=== PATIENT | male | born 1960 | race Caucasian/White ===

== ENCOUNTER → 2019-02-04 09:45 | Outpatient (POV) | payer OTHER, BC, SELFPAY | PROVIDERS: Visit Provider Dermatology | DX: Z00.00 Encounter for general adult medical examination without abnormal findings (principal) ==

== ENCOUNTER → 2019-02-14 10:17 | Outpatient (CLI) | payer BC, SELFPAY ==
--- NOTE | 2019-02-14 10:28 | XR_ITS ---
PROCEDURE: XR CHEST 2V CLINICAL HISTORY: COUGH,TOBACCO ABUSE COMPARISON: No exams were available for comparison FINDINGS: The cardiomediastinal silhouette and pulmonary vascularity are within normal limits. Borderline emphysematous changes noted with mild hyperinflation of the lungs and flattening of the hemidiaphragms. There is no infiltrate and no pleural fluid. There are minor degenerative changes lower thoracic spine. IMPRESSION: Borderline COPD otherwise negative chest Dictated by: Dr. Sudeep Brown MD 02/14/2019 10:[address] Sudeep Brown MD in [place] 02/14/2019 10:54
== END ==
PROVIDERS: PCP Family Medicine; Visit Provider Nurse Practitioner Family
DX: R05 Cough (principal); Z72.0 Tobacco use
CPT/HCPCS: 71046

== ENCOUNTER → 2019-07-29 09:53 | Outpatient (POV) | payer BC, SELFPAY | PROVIDERS: PCP Family Medicine; Visit Provider Dermatology | DX: Z00.00 Encounter for general adult medical examination without abnormal findings (principal) ==

== ENCOUNTER → 2019-10-14 07:46 | Outpatient (CLI) | payer BC, SELFPAY ==
[2019-10-14 07:51] LABS: Adenovirus,PCR Not Detected (NotDetected); Bordetella Pertussis Not Detected (NotDetected); Chlamydophila Pneumoniae, PCR Not Detected (NotDetected); Coronavirus 19, PCR Not Detected (NotDetected); Coronavirus 229E Not Detected (NotDetected); Coronavirus NL63 Not Detected (NotDetected); Coronavirus OC43 Not Detected (NotDetected); Coronovirus HKU1,PCR Not Detected (NotDetected); Human Metapneumovirus Not Detected (NotDetected); Influenza A, PCR Not Detected (NotDetected); Influenza AH1, 2009 Not Detected (NotDetected); Influenza AH1, PCR Not Detected (NotDetected); Influenza AH3,PCR Not Detected (NotDetected); Influenza B, PCR Not Detected (NotDetected); Mycoplasma Pneumoniae, PCR Not Detected (NotDected); Parainfluenza 1, PCR Not Detected (NotDetected); Parainfluenza 2, PCR Not Detected (NotDetected); Parainfluenza 3, PCR Not Detected (NotDetected); Parainfluenza 4, PCR Not Detected (NotDetected); Respiratory Syncytial Virus Not Detected (NotDetected); Rhinovirus/Enterovirus Not Detected (NotDetected)
--- NOTE | 2019-10-15 15:35 | PC.NURSE ---
notified pt and Kari RN of negative COVID 19 results.
== END ==
PROVIDERS: Visit Provider Surgery
DX: Z01.818 Encounter for other preprocedural examination (principal)
CPT/HCPCS: 87581; 87633; 87798

== ENCOUNTER 2019-10-16 07:19 | Day surgery (SDC) | payer BC, SELFPAY ==
--- NOTE | 2019-10-13 12:35 | SUR.PREOP ---
10/13/19 @ 0482--PHONE CALL MADE TO PATIENT. PATIENT UNDERSTANDS THAT LAB WORK AND COVID TESTING NEEDS TO BE COMPLETED @ 0800 ON 10/14/19. PATIENT UNDERSTANDS IF LAB WORK AND COVID-19 TESTS ARE NOT COMPLETED BY 12PM ON THAT DATE, THE SURGERY SCHEDULED WILL BE CANCELLED AND RESCHEDULED FOR ANOTHER TIME.
[2019-10-14 13:09] VITALS: BMI 36.3
[2019-10-16] VITALS (7 sets, daily range): BP systolic 85–172; BP diastolic 51–81; PULSE 60–85; RESP 18–20; TEMP 36.7–36.9; O2SAT 89–98
--- NOTE | 2019-10-16 08:40 | HMH.ANESCL ---
[facility] Anesthesia Checklist - Structural Data Admitted From: Home Planned Operative Procedure/s: egd/colonoscopy Consent for Planned Operative Procedure(s) Verified: Yes - Airway Assessment C-Spine Mobility Assessed: Yes TMJ Mobility Assessed: Yes Dentition: Good Dentition - Neurological Assessment Level of Consciousness: Awake, Alert, Appropriate - Anesthesia Plan Anesthesia Risk discussed: Yes Anesthesia Plan: Verified ASA Class: III Anesthesia Type: MAC [facility] History I have reviewed the patient's past medical history: Yes Medical History: Reports:: Hypertension Denies:: Cancer, Diabetes Mellitus Type 1, Diabetes Mellitus Type 2, Internal Pacemaker, MRSA, Seizures *Have you ever received a pneumonia vaccine?: No *Have you received a flu vaccine this season?: Yes Anesthesia experience/problems:: none Other Surgeries: Yes: Colonoscopy. No: Pacemaker Amputation: No Fractures: No - *Social History Educational Level: Completed High School Smoking Status: Former smoker Alcohol Intake: never Substance Use Type: denies use *Occupational Status:: employed Housing: house Household Members: spouse *Travel in the last 8 weeks: None Family Hx:: No significant family history
--- NOTE | 2019-10-16 09:27 | HMH.SCOPE ---
- Procedure: Date: 10/16/19 Procedure Performed:: Esophagogastroduodenoscopy with biopsy Colonoscopy with polypectomy by means other than snare Indications:: Melena Screening colonoscopy Performing Provider:: Milan Franco MD Referring Provider:: . Sedation:: Monitored anesthesia care Procedure:: After informed consent was obtained the patient was taken to the endoscopy suite. Sedation ensued after the patient was transferred to the left lateral decubitus position. Pulse, blood pressure, and oxygen saturation were monitored throughout the procedure. The endoscope was advanced beyond the duodenal bulb. Retroflexion within the gastric lumen was accomplished. The gastroscope was carefully removed. Digital rectal exam revealed no significant abnormality. The colonoscope was placed in position. The entire colon was evaluated. The colonoscope was carefully removed and the patient was transferred to recovery in stable condition. Please see findings and specimens below for detail. Findings:: Gastroesophageal junction at 40 cm Severe streaking distal gastritis Small shallow linear antral ulcerations Moderate to poor bowel preparation Tortuous/spastic colon Significant lack of relaxation Scattered sigmoid diverticulosis Hemorrhoidal cushions Polyps (see specimens) Specimens:: Multiple biopsies of antral ulcerations Transverse colon polyp Polyp at 15 cm Recommendations:: Follow-up pending pathology Proton pump inhibition Timing of repeat colonoscopy is pending pathology but will likely be around 2 years secondary to limited bowel preparation, tortuosity/spasticity, and lack of relaxation. Complications:: No immediate Estimated blood obtained (mL): 1
== END 2019-10-16 10:07 | disposition home or self-care (01) ==
PROVIDERS: PCP Family Medicine; Visit Provider Surgery
PROC: 0DJ08ZZ Inspection of Upper Intestinal Tract, Via Natural or Artificial Opening Endoscopic (ICD-10-PCS; CPT 43235; principal; 2019-10-16 08:30)
DX: Z12.11 Encounter for screening for malignant neoplasm of colon (principal); K92.1 Melena; I10 Essential (primary) hypertension; Z87.891 Personal history of nicotine dependence; D12.5 Benign neoplasm of sigmoid colon; D12.3 Benign neoplasm of transverse colon; K29.70 Gastritis, unspecified, without bleeding; K25.9 Gastric ulcer, unspecified as acute or chronic, without hemorrhage or perforation
CPT/HCPCS: 45388; 43239

== ENCOUNTER → 2019-10-30 10:31 | Outpatient (CLI) | payer BC, SELFPAY ==
--- NOTE | 2019-10-30 10:36 | XR_ITS ---
PROCEDURE: XR LUMBAR SPINE MIN 4V CLINICAL INDICATION: LOW BACK PAIN Low back pain COMPARISON: XR CHEST 2V from 02/14/2019 FINDINGS: There are 4 non rib-bearing lumbar segments. There is mild degenerative spurring of the lumbar spine. No acute fracture or dislocation. No lytic or blastic change. There are degenerative changes of the hips on both sides with sclerosis of the acetabular roof and subchondral cystic change on the right IMPRESSION: Mild degenerative changes of the lumbar spine and hips Dictated by: Emigdio Soares MD 10/30/2019 12:17 Electronically signed by Emigdio Soares MD in [place] 10/30/2019 12:17
--- NOTE | 2019-10-30 10:36 | XR_ITS ---
PROCEDURE: XR ELBOW LT MIN 3V CLINICAL INDICATION: LT ELBOW PAIN Posterior left elbow pain COMPARISON: No exams were available for comparison FINDINGS: No fracture or dislocation. No lytic or blastic change. There is normal mineralization. The joint spaces are well-preserved. No significant degenerative/arthritic changes. No erosive changes evident. Other findings:There are 2 metallic densities measuring 3 and 4 mm along the lateral aspect of the elbow anteriorly within the soft tissues. IMPRESSION: Two small metallic foreign bodies within the soft tissues in the anterior lateral aspect of the elbow. No acute bony or joint abnormality Dictated by: Emigdio Soares MD 10/30/2019 12:14 Electronically signed by Emigdio Soares MD in [place] 10/30/2019 12:14
== END ==
PROVIDERS: PCP Nurse Practitioner Family; Visit Provider Nurse Practitioner Family
DX: M54.5 Low back pain (principal); M25.522 Pain in left elbow
CPT/HCPCS: 72110; 73080

== ENCOUNTER → 2019-12-16 10:51 | Outpatient (CLI) | payer BC, SELFPAY ==
[2019-12-16 11:53] LABS: Coronavirus 19 IgG Antibody Negative (Negative); Coronavirus 19 IgM Antibody Negative (Negative)
== END ==
PROVIDERS: Visit Provider Surgery
DX: Z01.818 Encounter for other preprocedural examination (principal)
CPT/HCPCS: 36415; 86328

== ENCOUNTER 2019-12-18 06:26 | Day surgery (SDC) | payer BC, SELFPAY ==
[2019-12-16 10:35] VITALS: BMI 37.3
[2019-12-17 10:27] VITALS: BMI 30.2
[2019-12-18 06:55] VITALS: BP 147/66; PULSE 73; RESP 18; TEMP 37.1; O2SAT 96
--- NOTE | 2019-12-18 07:15 | P.PN_ITS ---
[facility] Anesthesia Checklist - Patient Identification Patient Identification: Arm Band - Structural Data Admitted From: Home Planned Operative Procedure/s: egd Consent for Planned Operative Procedure(s) Verified: Yes Verified Documents: Surgical Consent, History and Physical - NPO Status Verified Time NPO: 00:00 - Additional verifications Anesthesia Reactions: No - Airway Assessment C-Spine Mobility Assessed: Yes (mp2) TMJ Mobility Assessed: Yes Dentition: Edentulous - Neurological Assessment Level of Consciousness: Awake, Alert - Anesthesia Plan Anesthesia Risk discussed: Yes Anesthesia Plan: Verified ASA Class: III Anesthesia Type: MAC [facility] History I have reviewed the patient's past medical history: Yes Medical History: Reports:: Chronic Obstructive Pulmonary Disease (COPD), Gastroesophageal Reflux Disease(GERD), Hypertension Denies:: Cancer, Diabetes Mellitus Type 1, Diabetes Mellitus Type 2, Internal Pacemaker, MRSA, Seizures *Have you ever received a pneumonia vaccine?: No *Have you received a flu vaccine this season?: Yes Anesthesia experience/problems:: nac Other Surgeries: Yes: Colonoscopy, EGD. No: Pacemaker Amputation: No Fractures: No - *Social History Last grade of school completed: High school graduate Smoking Status: Former smoker Alcohol Intake: never Substance Use Type: denies use *Occupational Status:: employed Housing: house Household Members: spouse *Travel in the last 8 weeks: None Family Hx:: No significant family history
[2019-12-18 07:22] VITALS: O2SAT 98
--- NOTE | 2019-12-18 07:35 | HMH.SCOPE ---
- Procedure: Date: 12/18/19 Procedure Performed:: Esophagogastroduodenoscopy with biopsy Indications:: Antral ulcerations noted on recent EGD Performing Provider:: Milan Franco MD Referring Provider:: . Sedation:: Monitored anesthesia care Procedure:: After informed consent was obtained the patient was taken to the endoscopy suite. Sedation ensued after the patient was transferred to the left lateral decubitus position. Pulse, blood pressure, and oxygen saturation were monitored throughout the procedure. The endoscope was advanced beyond the duodenal bulb. Retroflexion within the gastric lumen was accomplished. The gastroscope was carefully removed and the patient was transferred to recovery in stable condition. Please see findings and specimens below for detail. Findings:: Gastroesophageal junction 40 cm Focal inflammation at gastroesophageal junction Small shallow antral ulcerations remain (improved versus prior evaluation) Specimens:: Biopsies of small antral ulcerations Gastroesophageal junction biopsy Recommendations:: Continue PPI Follow-up pathology Complications:: No immediate Estimated blood obtained (mL): 1
[2019-12-18 07:37] VITALS: BP 89/62; PULSE 73; RESP 18; TEMP 36.6; O2SAT 93
[2019-12-18 07:47] VITALS: BP 106/51; PULSE 78; RESP 18; TEMP 36.6; O2SAT 94
[2019-12-18 07:57] VITALS: BP 115/68; PULSE 71; RESP 20; TEMP 36.6; O2SAT 92
[2019-12-18 08:07] VITALS: BP 114/71; PULSE 69; RESP 18; TEMP 36.6; O2SAT 94
== END 2019-12-18 08:07 | disposition home or self-care (01) ==
LOC: OUTP 06:28
PROVIDERS: PCP Family Medicine; Visit Provider Surgery
PROC: 0DJ08ZZ Inspection of Upper Intestinal Tract, Via Natural or Artificial Opening Endoscopic (ICD-10-PCS; CPT 43235; principal; 2019-12-18 07:30)
DX: K25.3 Acute gastric ulcer without hemorrhage or perforation (principal); K20.8 Other esophagitis; J44.9 Chronic obstructive pulmonary disease, unspecified; I10 Essential (primary) hypertension; K21.9 Gastro-esophageal reflux disease without esophagitis; Z87.891 Personal history of nicotine dependence; Z79.899 Other long term (current) drug therapy
CPT/HCPCS: 43239; 86328

== ENCOUNTER → 2020-06-29 12:36 | Outpatient (CLI) | payer BC, SELFPAY ==
--- NOTE | 2020-06-29 12:42 | XR_ITS ---
PROCEDURE: XR KNEE LT 3V CLINICAL INDICATION: LT KNEE PAIN Pain COMPARISON: CR [id number] KNEE-LIMITED 2 VIEWS-LT from 08/17/2016 FINDINGS: No fracture or dislocation. No lytic or blastic change. There is normal mineralization. There are mild tricompartmental osteoarthritic changes. The Other findings:None. IMPRESSION: Mild osteoarthritis Dictated by: Emigdio Soares MD 06/29/2020 13:19 Emigdio Soares MD in [place] 06/29/2020 13:19
== END ==
PROVIDERS: PCP Family Medicine; Visit Provider Nurse Practitioner Family
DX: M25.562 Pain in left knee (principal)
CPT/HCPCS: 73562

== ENCOUNTER → 2021-06-14 14:08 | Outpatient (CLI) | payer BC, SELFPAY ==
--- NOTE | 2021-06-14 14:14 | XR_ITS ---
FINAL REPORT CLINICAL HISTORY: LOW BACK PAIN,NEUROGENIC CLAUDICATION FINDINGS: LUMBAR SPINE SERIES 7 views including oblique and flexion and extension views demonstrate no fracture or subluxation. There is mild anterior osteophyte formation at L4-L5. There is no instability with flexion or extension. IMPRESSION: No acute bony abnormality. No instability with flexion or extension. Reviewed, Interpreted and Dictated by Doc Wolff MD Transcribed by Pippa Wilhelm Authenticated by Doc Wolff MD on 06/14/2021 03:45:43 PM [facility]
--- NOTE | 2021-06-14 14:14 | XR_ITS ---
FINAL REPORT CLINICAL HISTORY: LT HIP PAIN, pelvis xray under right hip FINDINGS: LEFT HIP Two views of the left hip demonstrate no acute fracture or dislocation. There is mild to moderate hip joint space narrowing. There is some mild subchondral sclerosis. The femoral head has a normal smooth contour. The visualized bony structures are well aligned. No soft tissue abnormality is seen. IMPRESSION: Hypertrophic changes with no acute bony abnormality. Reviewed, Interpreted and Dictated by Doc Wolff MD Transcribed by Pippa Wilhelm Authenticated by Doc Wolff MD on 06/14/2021 03:45:32 PM [facility]
--- NOTE | 2021-06-14 14:14 | XR_ITS ---
FINAL REPORT CLINICAL HISTORY: RT HIP PAIN FINDINGS: RIGHT HIP Two views of the right hip with an AP pelvis demonstrate no acute fracture or dislocation. There is moderate right hip joint space narrowing. There is subchondral sclerosis. There is prominence of the right acetabular margin consistent with osteoarthritis. The visualized bony structures are well aligned. No soft tissue abnormality is seen. IMPRESSION: Hypertrophic changes which are more evident on the right than on the left. No acute bony abnormality. Reviewed, Interpreted and Dictated by Doc Wolff MD Transcribed by Pippa Wilhelm Authenticated by Doc Wolff MD on 06/14/2021 03:45:31 PM [facility]
== END ==
PROVIDERS: PCP Family Medicine; Visit Provider Family Medicine
DX: M54.50 Low back pain, unspecified (principal); M25.552 Pain in left hip; M25.551 Pain in right hip; G95.19 Other vascular myelopathies
CPT/HCPCS: 72114; 73502

== ENCOUNTER 2022-10-17 10:29 | Day surgery (SDC) | payer BC, SELFPAY ==
[2022-10-13 14:01] VITALS: BMI 39.3
[2022-10-17] VITALS (9 sets, daily range): BP systolic 97–158; BP diastolic 49–86; PULSE 66–79; RESP 16–18; TEMP 36.6–37; O2SAT 93–98
--- NOTE | 2022-10-17 11:02 | P.PCN_ITS ---
Procedure: Date: 10/17/22 Patient Date of :: 1960 Procedure Performed:: Colonoscopy with polypectomy Indications:: History of colon polyps Screening colonoscopy Sigmoid diverticulosis Hemorrhoids Note: Colonoscopy in October 2019 was somewhat complicated by moderate to poor bowel preparation, tortuosity, and spasticity. Sigmoid diverticulosis and hemorrhoid cushions noted. A transverse colon polyp and a polyp at 15 cm were excised. Performing Provider:: Milan Franco MD Referring Provider:: . Sedation:: Monitored anesthesia care Procedure:: After informed consent was obtained the patient was taken to the endoscopy suite. Sedation ensued after the patient was transferred to the left lateral decubitus position. Pulse, blood pressure, and oxygen saturation were monitored throughout the procedure. Digital rectal exam revealed no significant abnormality. The colonoscope was placed in position. The entire colon was evaluated. The colonoscope was carefully removed and the patient was trans ferred to recovery in stable condition. Please see findings and specimens below for detail. Findings:: Bowel preparation fair to moderate Profound lack of relaxation Fairly severe tortuosity Pandiverticulosis Hemorrhoidal cushions Polyps (see specimens) Specimens:: Polyp at 50 cm (cold snare) Polyp at 20 cm (cold snare) Recommendations:: Timing of repeat colonoscopy is pending pathology but will likely be between 2-3 years (pending results of recommended barium enema) Barium enema in the relatively near future secondary to visualization difficulties (profound lack of relaxation and severe tortuosity). Complications:: No immediate Estimated blood obtained (mL): 1
--- NOTE | 2022-10-17 11:07 | P.PN_ITS ---
[facility] Disclaimer: The information contained in this section may have been updated after the patient was seen, as this information can be updated by other users. Medical History Anxiety Hypertension Surgical History History of colonoscopy Family History Other No significant family history Social History Smoking Status: Former smoker quit date: 06/15/20 alcohol intake: never substance use type: denies use current occupational status: retired Travel in the last 8 weeks: None household members: spouse housing: house marital status: education level: high school service: Yes intermediate: No current occupation: [employer] current occupational exposures/hazards: No caffeine: Yes special jamar needs: No agree to transfusion: No do you feel safe at home: Yes victim of physical abuse: No victim of emotional abuse: No victim of sexual abuse: No would you like helpful sources: No [facility] Anesthesia Checklist Patient Identification Patient Identification: Arm Band Structural Data Admitted From: Home Planned Operative Procedure/s: Colonoscopy Consent for Planned Operative Procedure(s) Verified: Yes Verified Documents: Surgical Consent and History and Physical NPO Status Verified Time NPO: 00:00 Additional verifications Anesthesia Reactions: No Airway Assessment C-Spine Mobility Assessed: Yes TMJ Mobility Assessed: Yes Dentition: Dentures-good fit (upper) Neurological Assessment Level of Consciousness: Awake and Alert Anesthesia Plan Anesthesia Risk discussed: Yes Anesthesia Plan: Verified ASA Class: III Anesthesia Type: MAC
--- NOTE | 2022-10-17 14:00 | XR_ITS ---
FINAL REPORT CLINICAL HISTORY: Generalized abdominal pain after colonoscopy FINDINGS: Four views of the were obtained including a right lateral decubitus view. The lungs are grossly clear. There is no evidence of effusion, pneumothorax or other significant pleural disease. The mediastinum is unremarkable. The heart size is normal. The abdomen exam demonstrates the visualized intestinal gas pattern to be unremarkable without evidence to suggest obstruction. There is no free intraperitoneal air. no abdominal radiopacities are seen in the abdomen. IMPRESSION: Unremarkable abdominal series. Reviewed, Interpreted and Dictated by Floyd Hampton MD Transcribed by Charley Castillo Authenticated and [facility]
== END 2022-10-17 14:30 | disposition home or self-care (01) ==
PROVIDERS: PCP Family Medicine; Visit Provider Surgery
PROC: 0DJD8ZZ Inspection of Lower Intestinal Tract, Via Natural or Artificial Opening Endoscopic (ICD-10-PCS; CPT 45385; principal; 2022-10-17 11:30)
DX: K57.30 Diverticulosis of large intestine without perforation or abscess without bleeding (principal); K64.9 Unspecified hemorrhoids; K63.5 Polyp of colon
CPT/HCPCS: 45385; 74021; J2704

== ENCOUNTER 2023-07-22 11:55 | Inpatient (IN) | payer BC, SELFPAY ==
[2023-07-22] VITALS (15 sets, daily range): BP systolic 121–158; BP diastolic 58–81; PULSE 78–103; RESP 17–30; TEMP 36.5–37.1; O2SAT 78–95; BMI 39.9
--- NOTE | 2023-07-22 12:12 | XR_ITS ---
PROCEDURE INFORMATION: Exam: XR Chest Exam date and time: 07/22/2023 12:14 PM Age: 63 years old Clinical indication: Cough and shortness of breath; Additional info: SOA TECHNIQUE: Imaging protocol: Radiologic exam of the chest. Views: 2 views. COMPARISON: CR XR CHEST 2V 02/14/2019 10:29 AM FINDINGS: Lungs: Diffusely increased interstitial markings. Prominent central pulmonary vasculature. Bibasilar opacities. Overall findings are suggestive of pulmonary edema. Pleural spaces: No pleural effusion or pneumothorax. Heart/Mediastinum: Heart size is normal. Bones/joints: Unremarkable. IMPRESSION: Diffusely increased interstitial markings. Prominent central pulmonary vasculature. Bibasilar opacities. Overall findings are suggestive of pulmonary edema.
--- NOTE | 2023-07-22 12:18 | ECG_ITS ---
APPROVED REPORT Exam: Resting ECG HR:100 bpm ECG Measurements Heart Rate 100 AXES OR 144 P 47 QRSd 93 QRS -1 QT 337 T 52 QTc 394 Conclusion SINUS TACHYCARDIA LOW QRS VOLTAGE IN PRECORDIAL LEADS [QRS DEFLECTION < 1.0 mV IN CHEST LEADS] NONSPECIFIC T-WAVE ABNORMALITY ABNORMAL RHYTHM ECG UNCONFIRMED REPORT Electronically signed by : Kenneth Del Rosario MD 07/23/2023 17:58:12
[2023-07-22 12:26] LABS: Chloride 103 mmol/L (98-107)
[2023-07-22 12:27] LABS: Sodium 135 mmol/L (136-145)
[2023-07-22 12:29] LABS: Alanine Aminotransferase 55 U/L (12-78); Alkaline Phosphatase 93 U/L (38-126); Aspartate Amino Transferase 40 U/L (17-59); Bilirubin,Total 1.1 mg/dl (0.2-1.3); Blood Urea Nitrogen 12 mg/dl (9-20); Creatinine Clearance Estimated 133 mL/min (50-200); Estimated Glomerular Filt Rate 75 ml/min (>60); GFR (African American) 91 ML/MIN (>60)
[2023-07-22 12:30] LABS: Albumin Level 3.3 g/dl (3.5-5.0); Albumin/Globulin Ratio 0.8 (1.1-1.8); Calcium 8.8 mg/dl (8.4-10.2); Carbon Dioxide 28 mmol/L (22.0-30.0); Globulin 3.9 g/dL (1.3-3.2); Glucose 120 mg/dl (74-100); Total Protein,Serum 7.2 g/dl (6.3-8.2)
[2023-07-22 12:34] LABS: Lactic Acid 1.3 mmol/L (0.7-2.1)
[2023-07-22 12:38] LABS: Coronavirus 19, PCR Not Detected (NotDetected); Influenza A, PCR Not Detected (NotDetected); Influenza B, PCR Not Detected (NotDetected)
[2023-07-22 12:39] LABS: Basophils # 0.1 K/mm3 (0-0.2); Basophils % 0.4 % (0.1-2.0); Eosinophils # 0.3 K/mm3 (0.0-0.4); Eosinophils % 2.1 % (0.1-12.0); Hematocrit 49.7 % (42.0-52.0); Hemoglobin 16.2 g/dL (14.1-18.0); Lymphocytes # 1.7 K/mm3 (0.7-4.5); Lymphocytes % 13.5 % (10-50); Mean Corpuscular HGB Conc 32.6 g/dL (31.8-35.4); Mean Corpuscular Hemoglobin 31.9 pg (27.0-31.2); Mean Corpuscular Volume 97.9 fl (80-94); Mean Platelet Volume 7.3 fl (7.4-10.4); Monocytes # 0.5 K/mm3 (0.1-1.0); Monocytes % 4.3 % (1.7-9.3); Neutrophils % 79.6 % (37.0-80.0); Platelet Count 345 K/mm3 (142-424); Red Blood Count 5.08 M/mm3 (4.60-6.20); Red Cell Distribution Width 13.1 % (11.5-17.5); White Blood Count 12.5 K/mm3 (4.8-10.8)
--- NOTE | 2023-07-22 12:39 | ED_ITS ---
Discharge Plan Disposition Patient Disposition: Admitted Chief Complaint: Shortness of Breath/Dyspnea Prescriptions Prescriptions: No Action losartan 25 mg tablet 25 mg PO DAILY sertraline 50 mg tablet 50 mg PO DAILY pantoprazole [Protonix] 40 mg tablet,delayed release (DR/EC) 40 mg PO DAILY Referrals Follow up/Referrals: Gato Frederick MD [Primary Care Provider] - See instructions Clinical Impressions Clinical Impression: Severe sepsis, Multifocal pneumonia, Acute hypoxic respiratory failure, Acute exacerbation of chronic obstructive pulmonary disease Discharge ED Provider: Светлана Lynn HPI General Chief Complaint: Shortness of Breath/Dyspnea Stated Complaint: SOA, problems with COPD Time Seen by Provider: 07/22/23 12:23 Mode of Arrival: Ambulatory Source of Information: Patient and Spouse Limitations: No Limitations Description of Symptoms (Recalled from ER Triage Doc. by RN): pt and spouse report SOA and fever since sunday, was sawbbed for flu and covid and it was negative, given doxycycline and zpack. pt has not got any better and cant breathe at night so pt made him come today. pt was 78% on room air. placed on 6 L nasal cannula. pt has hx of copd History of Present Illness HPI narrative: Patient is a 63-year-old male with a history of COPD presents today with profound shortness of breath. No history of heart failure states has been sick since last Sunday has had fever almost daily Tmax of 102 most recently 100.0 yesterday. No history of oxygen supplementation. He has not had any increased wheezing but has had increased cough with sputum production. Went to the doctor outpatient was given doxycycline and then azithromycin without any significant improvement. Related Data Home Medications Medication Instructions Recorded Confirmed losartan 25 mg tablet 25 mg PO DAILY blood pressure 08/27/19 10/25/22 sertraline 50 mg tablet 50 mg PO DAILY mood 08/27/19 10/25/22 pantoprazole 40 mg tablet,delayed 40 mg PO DAILY stomach 12/03/19 10/25/22 release (Protonix) Allergies Allergy/AdvReac Type Severity Reaction Status Date / Time No Known Allergies Allergy Unknown Uncoded 10/25/22 13:08 [facility] Disclaimer: The information contained in this section may have been updated after the patient was seen, as this information can be updated by other users. Medical History Anxiety Hypertension Surgical History History of colonoscopy Family History Other No significant family history Social History Smoking Status: Former smoker alcohol intake: never substance use type: denies use current occupational status: retired Travel in the last 8 weeks: None household members: spouse housing: house marital status: education level: high school service: Yes residential: No current occupation: [employer] current occupational exposures/hazards: No caffeine: Yes special jamar needs: No agree to transfusion: No do you feel safe at home: Yes victim of physical abuse: No victim of emotional abuse: No victim of sexual abuse: No would you like helpful sources: No ROS Obtained: Yes All systems reviewed & no additional complaints except as documented Physical Exam General General appearance: alert Respiratory Respiratory exam: Present other (Patient is in respiratory distress oxygen saturations 84% on 6 L on my assessment no significant diffuse expiratory wheezing but there are diffuse crackles) Cardiovascular Cardiovascular exam: Present tachycardia Neurological Exam Neurological exam: Present alert HEART Score HEART Score HEART Score assessment performed?: Yes History (anamnesis): Slightly suspicious ECG: Non-specific disturbance Age: 45-65 years Risk factors: 1-2 risk factors Troponin: </= normal limit HEART Score: 3 Procedures Miscellaneous Procedure Procedure Performed: Limited cardiac ultrasound Indication: Dyspnea Identified structures: The heart was visualized in the parasternal long axis, parastenal short axis, apical four chamber and subxyphiod views. The IVC was visualized in the short axis and long axis at its entry into the right atrium. Findings: Hyperdynamic LV no decreased LVEF no pericardial effusion no significant right heart strain IVC is 0.5 cm with normal respirophasic variation Impression: Hyperdynamic LV without evidence of decreased EF or pericardial effusion Images were saved to permanent archive The study was technically adequate CPT: 25000-62 This study was performed by me, and I personally interpreted all images/videos. Based on my clinical judgement, these images were adequate and did not necessitate further imaging. Limited lung ultrasound A focused ultrasound exam of the pleural spaces was performed to evaluate for pneumothorax, pulmonary edema, pleural effusion and/or consolidation. The ultrasound was performed with the following indications, as noted in the H&P: Dyspnea Identified structures: [RIGHT and/or LEFT] thoracic cavities were examined. Findings: Lung sliding present there are scant B-lines throughout the anterior lung arteaga on the left and right no obvious pleural effusions or consolidation Impression: Overall normal lung ultrasound with some scant B-lines no evidence of pleural effusions Images were saved to permanent archive The study was not technically adequate CPT 51401-29 This study was performed by me, and I personally interpreted all images/videos. Based on my clinical judgement, these images were adequate and did not necessitate further imaging. Critical Care Critical Care Time Critical Care Time: Yes Attestation: On 07/22/23, the high probability of a clinically significant, sudden or life threatening deterioration of the following system(s) required my full and direct attention, intervention and personal management. The time I documented below is in addition to time spent performing reported procedures but includes the following listed in this critical care notation. Total Time Total Critical Care Time: 35 Medical Decision Making Avery Inquiry Pt receiving controlled substance: No Vital Signs Vital Signs: 07/22/23 11:56 07/22/23 12:31 07/22/23 13:00 Temperature 98.7 F Temperature Source Oral Pulse Rate 99 H 89 Pulse Rate [Right Radial] 103 H Respiratory Rate 30 H Blood Pressure 150/79 H 134/76 Blood Pressure [Right Arm] 140/78 Blood Pressure Mean Blood Pressure Mean [Right Arm] 98 02 Sat by Pulse Oximetry 78 L 92 L 95 Oxygen Delivery Method Room Air Venturi Mask Venturi Mask 07/22/23 13:31 Temperature Temperature Source Pulse Rate 95 H Pulse Rate [Right Radial] Respiratory Rate Blood Pressure 133/69 Blood Pressure [Right Arm] Blood Pressure Mean 86 Blood Pressure Mean [Right Arm] 02 Sat by Pulse Oximetry 95 Oxygen Delivery Method Venturi Mask Lab Data Lab results reviewed: Yes I reviewed the patient's lab results. Labs: Lab Results 07/22/23 12:10: WBC 12.5 H, RBC 5.08, Hgb 16.2, Hct 49.7, MCV 97.9 H, MCH 31.9 H , MCHC 32.6, RDW 13.1, Plt Count 345, MPV 7.3 L, Neut % (Auto) 79.6, Lymph % (Auto) 13.5, Travis % (Auto) 4.3, Eos % (Auto) 2.1, Baso % (Auto) 0.4, Neut # (Auto) 10.0 H, Lymph # (Auto) 1.7, Travis # (Auto) 0.5, Eos # (Auto) 0.3, Baso # (Auto) 0.1, Sodium 135 L, Potassium 4.0, Chloride 103, Carbon Dioxide 28, Anion Gap 8.0, BUN 12, Creatinine 1.00, Estimated Creat Clear 133, Estimated GFR 75, Est GFR ( Amer) 91, Glucose 120 H, Lactate 1.3, Calcium 8.8, Total Bilirubin 1.1, AST 40, ALT 55, Alkaline Phosphatase 93, Troponin I < 0.01, NT-Pro-B Natriuret Pep 283 H, Total Protein 7.2, Albumin 3.3 L, Globulin 3.9 H, Albumin/Globulin Ratio 0.8 L, SARS-CoV-2 (PCR) Not detected, Influenza A Untype (PCR) Not detected, Influenza Type B (PCR) Not detected 07/22/23 12:13: VBG pH 7.38, VBG pCO2 38.8, VBG pO2 39.0, VBG HCO3 22.2 L, VBG Total CO2 23.4, VBG O2 Saturation 70.8 H, VBG Base Excess -3.0 L 07/22/23 12:10 07/22/23 12:10 Response Orders (Tests/Meds): ED MEDICATIONS Generic Name Dose Route Start Last Admin Trade Name Freq PRN Reason Stop Dose Admin Enoxaparin Sodium 40 mg 07/22/23 14:15 Enoxaparin 40mg/0.4ml Syringe SQ 08/21/23 14:14 DAILY ANDRÉS Lactated Ringer's 2,190 mls @ 1,095 mls/hr 07/22/23 12:36 07/22/23 12:44 Lactated Ringer's 1000 Ml Bag 30 ml/kg infuse over 2 hr (2190 ml) 07/22/23 14:35 1,095 mls/hr IV Administration .Q2H ONE Vancomycin HCl 2,500 mg/ 250 mls @ 125 mls/hr 07/22/23 13:00 Sodium Chloride IV 07/22/23 14:59 ONCE ONE Miscellaneous 1 each 07/22/23 12:45 02/11/24 12:40 Vancomycin Consult Request NOTAPPLIC 08/21/23 12:44 1 each CONSULT PHARMACY ANDRÉS Administration Sodium Chloride 3 ml 07/22/23 14:05 Sodium Chloride 3% 15ml [facility] 08/21/23 14:04 ONCE PRN INDUCE SPUTUM COLLECTION Discontinued Medications Generic Name Dose Route Start Last Admin Trade Name Freq PRN Reason Stop Dose Admin Albuterol/Ipratropium 3 ml 07/22/23 12:39 07/22/23 12:44 Ipratropium/Albuterol 3 Ml [facility] 07/22/23 12:40 3 ml ONCE ONE Administration Cefepime HCl 2 gm/ Sodium 100 mls @ 200 mls/hr 07/22/23 12:36 07/22/23 13:34 Chloride IV 07/22/23 13:05 200 mls/hr ONCE ONE Administration Azithromycin 500 mg/ Sodium 250 mls @ 250 mls/hr 07/22/23 12:37 07/22/23 13:50 Chloride IV 07/22/23 12:38 250 mls/hr ONCE ONE Administration Iopamidol 80 ml 07/22/23 13:32 07/22/23 13:33 Iopamidol-370 (76%);100ml Bottle IV 07/22/23 13:33 80 ml ONCE ONE Administration Methylprednisolone Sodium Succinate 125 mg 07/22/23 12:39 07/22/23 12:44 Methylprednisolone Sod Succ 125mg Vial IV 07/22/23 12:40 125 mg ONCE ONE Administration Sodium Chloride 10 ml 07/22/23 13:32 07/22/23 13:33 Sodium Chloride 0.9% 10ml Syr (Rad Only) IV 07/22/23 13:33 10 ml ONCE ONE Administration Sodium Chloride 50 ml 07/22/23 13:32 07/22/23 13:33 0.9 % Sodium Chloride 50 Ml Vial IV 07/22/23 13:33 50 ml ONCE ONE Administration ORDERS Category Date Time Status CT angio chest PE protocol Stat Cat Scan 07/22/23 12:40 Completed Pulmonology Consult [Consult to Pulmonology] [CONS] Cons 07/22/23 14:05 Active Routine POCUS Point of Care (ER Only) Stat Exams 07/22/23 12:23 Taken XR chest 2V Stat Exams 07/22/23 12:12 Completed BNP [Brain Natriuretic Peptide] Stat Lab 07/22/23 12:10 Completed Complete Blood Count Auto Diff AMLAB Lab 07/23/23 06:00 Ordered Complete Blood Count Auto Diff Stat Lab 07/22/23 12:10 Completed Comprehensive Metabolic Panel AMLAB Lab 07/23/23 06:00 Ordered Comprehensive Metabolic Panel Stat Lab 07/22/23 12:10 Completed Full Resp Panel w/COVID ([facility]) Routine Lab 07/22/23 14:05 Ordered Hemoglobin A1C Stat Lab 07/22/23 12:10 Received Lactic Acid Stat Lab 07/22/23 12:10 Completed Magnesium AMLAB Lab 07/23/23 06:00 Ordered Rapid PCR Covid and Flu A/B Stat Lab 07/22/23 12:10 Completed TSH [Thyroid Stimulating Hormone] Stat Lab 07/22/23 12:10 Received Troponin I Q3H Lab 07/22/23 12:10 Completed Troponin I Q3H Lab 07/22/23 18:15 Ordered Blood Culture Stat Micro 07/22/23 12:38 Received MRSA Screen Routine Micro 07/22/23 14:05 Ordered Sputum Culture & Gram Stain Stat Micro 07/22/23 14:05 Ordered VBG [Venous Blood Gas] Stat RT 07/22/23 12:13 Completed Tissue Perfus/Sepsis Re-Eval Sepsis Re-Evaluation Performed: Yes Date Performed: 07/22/23 Time Performed: 14:20 MDM Narrative Medical Decision Narrative: 63-year-old male presents today with hypoxic respiratory failure. He has a his tory of COPD however his symptoms are more concerning about lung parenchymal disease or possible pulmonary embolism. Bedside ultrasound shows a hyperdynamic LV without an IVC plethora and no diffuse B-lines or pulmonary edema making multifocal pneumonia and/or pulmonary embolism unlikely. Chest x-ray performed which I personally interpreted shows multifocal interstitial infiltrates which are infectious versus edema. Based on my ultrasound above I favor infection. Also patient's been febrile we will treat him for multifocal pneumonia as he is critically ill with vancomycin cefepime and azithromycin for atypical coverage. Will treat him also for sepsis. Additionally get a CT PE to further differentiate pneumonia versus pulm edema versus pulmonary embolism. Patient will require admission. He is currently requiring a Ventimask for oxygen supplementation and is otherwise stable. CT scan performed which I personally interpreted shows no pulmonary embolism there is diffuse groundglass opacities concerning for multifocal pneumonia which is what I am leading on the differential patient has a normal BNP no evidence of significant B-lines or pleural effusions on bedside ultrasound. Also the heart was hyperdynamic and IVC is decompressed. This is not consistent with pulmonary edema in my opinion. Patient was given vancomycin cefepime and azithromycin and fluids for sepsis. Patient required escalating oxygen supplementation and is currently on 50% Ventimask. However he still 87% will put him on high flow nasal cannula. He is hemodynamically stable I discussed the case with Dr. Mina Bray and patient was admitted in guarded and critical condition but improved.
[2023-07-22] MEDS: VANCOMYCIN CONSULT REQUEST 1 EACH NOTAPPLIC (12:40)
--- NOTE | 2023-07-22 12:40 | CT_ITS ---
PROCEDURE INFORMATION: Exam: CTA Chest With Contrast Exam date and time: 07/22/2023 1:20 PM Age: 63 years old Clinical indication: Dyspnea and other: Hypoxia; Additional info: Dyspnea, hypoxia TECHNIQUE: Imaging protocol: Computed tomographic angiography of the chest with contrast. Exam focused on the arteries. 3D rendering (Not supervised by radiologist): MIP and/or 3D reconstructed images were created by the technologist. Radiation optimization: All CT scans at this facility use at least one of these dose optimization techniques: automated exposure control; mA and/or kV adjustment per patient size (includes targeted exams where dose is matched to clinical indication); or iterative reconstruction. Contrast material: ISOVUE; Contrast volume: 80 ml; Contrast route: INTRAVENOUS (IV); COMPARISON: CR XR CHEST 2V 07/22/2023 12:14 PM FINDINGS: Pulmonary arteries: There is suboptimal opacification of pulmonary arteries due to contrast bolus timing. Aorta: Unremarkable. No aortic aneurysm. No aortic dissection. Lungs: Extensive bilateral ground-glass regions of opacification. Findings nonspecific and most likely interstitial lung disease. 14 mm focus of masslike consolidation right lung apex. Findings may be infectious in etiology. Malignancy could not be excluded. Follow-up recommended. Bibasilar atelectasis versus parenchymal scarring. Pleural spaces: Unremarkable. No pneumothorax. No pleural effusion. Heart: Unremarkable. No cardiomegaly. No pericardial effusion. Coronary arteries: Trace coronary artery calcification Lymph nodes: Bilateral hilar, subcarinal and paratracheal adenopathy measuring up to 2 cm. Diaphragm: Small hiatal hernia Bones/joints: No acute fracture. Thoracic spondylosis Soft tissues: Unremarkable. Other findings: Findings demonstrated on (series 7, image number 24). IMPRESSION: 1. Extensive bilateral ground-glass regions of opacification. Findings nonspecific and most likely interstitial lung disease. Bilateral asymmetric regions of pleural reactive change 2. 14 mm focus of masslike consolidation pleural-based right lung apex. Findings may be infectious in etiology. Malignancy could not be excluded. Follow-up recommended. 3. No large or central pulmonary embolus. Evaluation of the peripheral pulmonary arteries is limited. 4. Recommend follow-up CT Chest in 6-12 months. (References: Vilma and Garima) REFERENCES: 1. Vilma Main, et al. Guidelines for Management of Incidental Pulmonary Nodules Detected on CT Images: From the Fleischner Society 2017. Radiology. 2017;284(1):228-243. 2. Garima J, et al. Updated Fleischner Society Guidelines for Managing Incidental Pulmonary Nodules: Common Questions and Challenging Scenarios. Radiographics. 2018;38(5):1031-9205.
--- NOTE | 2023-07-22 12:41 | PC.NURSE ---
Pt placed on venimask by RT
[2023-07-22 12:44] LABS: VBG HCO3 22.2 mmol/L (23-30); VBG Oxygen Saturation 70.8 % (50-70); VBG PCO2 38.8 mmol/L (35-51); VBG PH 7.38 mmol/L (7.31-7.41); VBG Total CO2 23.4 mmol/L (23-27)
[2023-07-22] MEDS: IPRATROPIUM/ALBUTEROL 3 ML NEB IH ×2 (12:44→23:43)
[2023-07-22] MEDS: LACTATED RINGERS 1000ML 2,190 ML 1095 ML IV (12:44)
[2023-07-22] MEDS: METHYLPREDNISOLONE SOD SUCC 125MG VIAL 125 MG IV (12:44)
[2023-07-22 12:49] LABS: Troponin I < 0.01 ng/ml (0.00-0.034)
--- NOTE | 2023-07-22 13:01 | [facility].ITSTN ---
Two attempts were made to get Mr. Cho for CT angio chest exam. Nursing has been attempting to get patient's breathing treatment going. CAT scan exam delayed significantly due to nursing and respiratory care treatment delays.
--- NOTE | 2023-07-22 13:16 | PC.NURSE ---
Pt gone to CT via wheelchair
[2023-07-22 13:22] LABS: NT Pro Brain Natriuretic Pep. 283 pg/mL (0-125)
--- NOTE | 2023-07-22 13:28 | PC.NURSE ---
Pt returned from CT
[2023-07-22] MEDS: IOPAMIDOL-370 (76%);100ML BOTTLE 80 ML IV (13:33)
[2023-07-22] MEDS: SODIUM CHLORIDE 0.9% 10ML SYR (RAD ONLY) 10 ML IV (13:33)
[2023-07-22] MEDS: 0.9 % SODIUM CHLORIDE 50 ML VIAL IV (13:33)
[2023-07-22] MEDS: CEFEPIME HCL 2 GM in 0.9 % SODIUM CHLORIDE 100 ML IV ×2 (13:34→21:06)
[2023-07-22] MEDS: AZITHROMYCIN 500 MG in 0.9 % SODIUM CHLORIDE 250 ML 250 MG IV (13:50)
--- NOTE | 2023-07-22 14:00 | PC.NURSE ---
DR JACKSON SPEAKING WITH DR GALVAN FOR ADMISSION
--- NOTE | 2023-07-22 14:07 | PC.NURSE ---
FRAME CATCHER NOTIFIED OF ADMISSION
--- NOTE | 2023-07-22 14:12 | PC.NURSE ---
RESPIRATORY REQUESTED FRO VAPO-THERM
--- NOTE | 2023-07-22 14:14 | PC.NURSE ---
RESPIRATORY AT BEDSIDE
[2023-07-22] MEDS: ENOXAPARIN 40MG/0.4ML SYRINGE 40 MG SQ (14:44)
[2023-07-22 14:53] LABS: Thyroid Stimulating Hormone 2.21 uIU/mL (0.465-4.68)
--- NOTE | 2023-07-22 15:50 | PC.NURSE ---
RN rounded on patient and he is resting comfortable and vitals WNL, family at bedside and provided coffee
--- NOTE | 2023-07-22 15:54 | EXP.HP ---
History of Present Illness *Admission Date: 07/22/23 *Reason for visit:: Shortness of breath *History of present illness: Mr. Cho is a 63-year-old male who presents to the ER with complaint of shortness of breath. States that a little over a week ago he went to a family where there were several sick family members. Symptoms began shortly thereafter with him having dry nonproductive cough and shortness of breath. This past week he went to see his PCP who started him on doxycycline and Z-Hayden. States he has not had any improvement in symptoms and symptoms have progressed to the point that he cannot breathe at night. made him come in to the ER today when he was 78% on room air. Initiated on nasal cannula oxygen and evaluated in the ER for further management. Chest imaging obtained with CT showing diffuse bilateral multifocal pneumonia. White cell count elevated, frankly hypoxic necessitating at least 6 L nasal cannula oxygen. Medicine consulted for admission due to respiratory failure, sepsis, multifocal pneumonia. On evaluation, patient states he is feeling somewhat better after being put on oxygen. Is in good spirits. Denies any chest pain, nausea, vomiting. Had an episode of diarrhea today after he had initiated his antibiotics. Denies any fever today but did have a fever several days ago to 102. No confusion, syncope, loss of consciousness. [facility] Disclaimer: The information contained in this section may have been updated after the patient was seen, as this information can be updated by other users. Medical History Anxiety Hypertension Surgical History History of colonoscopy Family History No significant family history Social History Smoking Status: Former smoker alcohol intake: never substance use type: denies use current occupational status: retired Travel in the last 8 weeks: None household members: spouse housing: house marital status: education level: high school service: Yes detention: No current occupation: [employer] current occupational exposures/hazards: No caffeine: Yes special jamar needs: No agree to transfusion: No do you feel safe at home: Yes victim of physical abuse: No victim of emotional abuse: No victim of sexual abuse: No would you like helpful sources: No Review of Systems Review of Systems Review of systems (narrative): 14 point review of systems performed, pertinent positives and negatives as per [facility] Meds Home Medications and Allergies Home Medications Medication Instructions Recorded Confirmed Type losartan 25 mg tablet 25 mg PO DAILY blood pressure 08/27/19 07/22/23 History sertraline 50 mg tablet 50 mg PO DAILY mood 08/27/19 07/22/23 History pantoprazole 40 mg tablet,delayed 40 mg PO DAILY stomach 12/03/19 07/22/23 History release (Protonix) New Prescriptions to Start Prescriptions: Allergies Allergy/AdvReac Type Severity Reaction Status Date / Time No Known Allergies Allergy Unknown Uncoded 10/25/22 13:08 Exam Data for Last 24 hours Vital signs and Labs for Last 24 Hours: Temp Pulse Resp BP Pulse Ox O2 Del Method O2 Flow Rate 98.7 F 83 30 H 149/76 H 94 L Vapotherm 15 07/22/23 11:56 07/22/23 14:31 07/22/23 11:56 07/22/23 14:31 07/22/23 14:31 07/22/23 14:31 07/22/23 14:10 FiO2 50 07/22/23 14:10 Laboratory Results - last 24 hr 07/22/23 12:10: WBC 12.5 H, RBC 5.08, Hgb 16.2, Hct 49.7, MCV 97.9 H, MCH 31.9 H, MCHC 32.6, RDW 13.1, Plt Count 345, MPV 7.3 L, Neut % (Auto) 79.6, Lymph % (Auto) 13.5, [place] % (Auto) 4.3, Eos % (Auto) 2.1, Baso % (Auto) 0.4, Neut # (Auto) 10.0 H, Lymph # (Auto) 1.7, [place] # (Auto) 0.5, Eos # (Auto) 0.3, Baso # (Auto) 0.1, Sodium 135 L, Potassium 4.0, Chloride 103, Carbon Dioxide 28, Anion Gap 8.0, BUN 12, Creatinine 1.00, Estimated Creat Clear 133, Estimated GFR 75, Est GFR ( Amer) 91, Glucose 120 H, Hemoglobin A1c 6.0, Lactate 1.3, Calcium 8.8, Total Bilirubin 1.1, AST 40, ALT 55, Alkaline Phosphatase 93, Troponin I < 0.01, NT-Pro-B Natriuret Pep 283 H, Total Protein 7.2, Albumin 3.3 L, Globulin 3.9 H, Albumin/Globulin Ratio 0.8 L, TSH 2.21, SARS-CoV-2 (PCR) Not detected, Influenza A Untype (PCR) Not detected, Influenza Type B (PCR) Not detected 07/22/23 12:13: VBG pH 7.38, VBG pCO2 38.8, VBG pO2 39.0, VBG HCO3 22.2 L, VBG Total CO2 23.4, VBG O2 Saturation 70.8 H, VBG Base Excess -3.0 L I & O for Last 24 hours: Intake & Output 07/19/23 07/20/23 07/21/23 07/22/23 23:59 23:59 23:59 23:59 Weight 126.099 kg Constitutional Constitutional: mild distress, obese and cooperative *Routine HEENT Exam Head: Present normocephalic Eye: Present EOMI and PERRL ENT: Present mucous membranes moist *Routine Neck Exam Neck: Present supple; Absent lymphadenopathy *Routine Respiratory Exam Respiratory: Present accessory muscle use, prolonged expiratory phase, wheezes and crackles; Absent rhonchi *Routine Cardiovascular Exam Cardiovascular: Present RRR *Routine Abdominal Exam Abdominal: Present soft and normoactive bowel sounds; Absent tenderness *Routine Rectal Exam Rectal:: deferred *Routine Genitalia Exam Genitalia:: deferred *Routine Extremities Exam Extremities: Absent cyanosis, clubbing or edema *Routine Skin Exam Skin: Present warm; Absent rash *Routine Neurological Exam Neurological: Present alert, oriented X3 and moving all extremities; Absent altered mental status Assessment and Plan *Assessment and plan (1) Severe sepsis: Status: Acute Category: Medical Code(s): A41.9 - Sepsis, unspecified organism; R65.20 - Severe sepsis without septic shock (2) Multifocal pneumonia: Status: Acute Category: Medical Code(s): J18.9 - Pneumonia, unspecified organism (3) Acute hypoxic respiratory failure: Status: Acute Category: Medical Code(s): J96.01 - Acute respiratory failure with hypoxia (4) Acute exacerbation of chronic obstructive pulmonary disease: Status: Acute Category: Medical Code(s): J44.1 - Chronic obstructive pulmonary disease with (acute) exacerbation (5) Hypertension: Status: Acute Category: Medical Code(s): I10 - Essential (primary) hypertension (6) Class II obesity: Status: Acute Category: Medical Code(s): E66.9 - Obesity, unspecified Plan 63-year-old male who presents with a week of worsening shortness of breath. Found to be in hypoxemic respiratory failure. Discussed case with ER, request admission for treatment of multifocal pneumonia, new oxygen requirement, sepsis. Medicine agreed to admit for further management. Differential diagnosis includes atypical pneumonia, viral pneumonia, COVID, flu. COVID and flu negative however symptoms been going on for over a week. Had extensive exposure with large group of family at a prior to symptom onset. Problems addressed as follows: Severe sepsis with acute hypoxemic respiratory failure secondary to multifocal pneumonia - Sepsis with tachycardia, tachypnea, leukocytosis, multifocal pneumonia. - PSI port score of 74, class III risk. -Sepsis bolus administered, cultures obtained - initiated on broad-spectrum antibiotic; Continue vancomycin, cefepime, azithromycin - Sputum culture pending, comprehensive respiratory panel pending - DuoNebs every 6 hours scheduled - Pulmonology consulted, appreciate their recommendations - Repeat CBC, CMP, magnesium ordered for the morning - Hypoxic to 70% on arrival. Initiated on Vapotherm, currently 40 L 80%. Goal sats greater than 90%. History of hypertension: Holding losartan in the setting of sepsis. Mood disorder: Continue sertraline 50 mg daily GERD: Continue pantoprazole 40 mg daily Class II obesity complicates all aspects of his care Full code Lovenox 40 mg daily Regular diet
--- NOTE | 2023-07-22 16:04 | PC.NURSE ---
Called report to Olivia JONES on 2nd floor and answered all questions
--- NOTE | 2023-07-22 16:26 | PC.NURSE ---
arrived by w/c from ED
[2023-07-22 16:34] LABS: Troponin I < 0.01 ng/ml (0.00-0.034)
--- NOTE | 2023-07-22 16:57 | PC.NURSE ---
pt admitted to 217 from ED via wheelchair, pt has 20G PIV left AC, pt on vapotherm 40L and 80%FIO2, pt used ambulated to bathroom and voided upon arrival to room, pt's and sisters at bedside, call light within reach
[2023-07-22 17:29] LABS: Adenovirus,PCR Not Detected (NotDetected); Coronavirus 19, PCR Not Detected (NotDetected); Coronavirus 229E Not Detected (NotDetected); Coronavirus NL63 Not Detected (NotDetected); Coronavirus OC43 Not Detected (NotDetected); Coronovirus HKU1,PCR Not Detected (NotDetected); Human Metapneumovirus Not Detected (NotDetected); Influenza A, PCR Not Detected (NotDetected); Influenza AH1, 2009 Not Detected (NotDetected); Influenza AH1, PCR Not Detected (NotDetected); Influenza AH3,PCR Not Detected (NotDetected); Influenza B, PCR Not Detected (NotDetected); Parainfluenza 1, PCR Not Detected (NotDetected); Parainfluenza 2, PCR Not Detected (NotDetected); Parainfluenza 3, PCR Not Detected (NotDetected); Parainfluenza 4, PCR Not Detected (NotDetected); Respiratory Syncytial Virus Not Detected (NotDetected)
[2023-07-22] MEDS: VANCOMYCIN HCL 2,500 MG in 0.9 % SODIUM CHLORIDE 250 ML 125 MG IV (17:30)
[2023-07-22 19:06] LABS: Rhinovirus/Enterovirus Detected (NotDetected)
[2023-07-22 19:49] LABS: Troponin I < 0.01 ng/ml (0.00-0.034)
[2023-07-23] VITALS (21 sets, daily range): BP systolic 114–169; BP diastolic 58–95; PULSE 25–92; RESP 16–27; TEMP 36.7–37.3; O2SAT 82–94; BMI 39.8
[2023-07-23] MEDS: IPRATROPIUM/ALBUTEROL 3 ML NEB IH ×4 (06:00→23:25)
--- NOTE | 2023-07-23 07:34 | HMH.PHAINT1 ---
Pharmacy Intervention Comments: MEDICATION RECONCILIATION COMPLETED ON PATIENT USING EXTERNAL FILL HISTORY FROM PHARMACY. -THERON VIGIL, DIMITRID
[2023-07-23 08:00] LABS: Basophils % 0.1 % (0.1-2.0); Hemoglobin 15.2 g/dL (14.1-18.0); Lymphocytes # 1.3 K/mm3 (0.7-4.5); Lymphocytes % 8.5 % (10-50); Mean Corpuscular HGB Conc 33.7 g/dL (31.8-35.4); Mean Corpuscular Hemoglobin 32.4 pg (27.0-31.2); Mean Corpuscular Volume 96.1 fl (80-94); Mean Platelet Volume 8.2 fl (7.4-10.4); Monocytes # 0.8 K/mm3 (0.1-1.0); Neutrophils # 13.7 K/mm3 (1.8-7.8); Neutrophils % 86.4 % (37.0-80.0); Platelet Count 361 K/mm3 (142-424); Red Blood Count 4.68 M/mm3 (4.60-6.20); Red Cell Distribution Width 13.1 % (11.5-17.5); White Blood Count 15.8 K/mm3 (4.8-10.8)
[2023-07-23 08:01] LABS: MANUAL DIFFERENTIAL MANUAL DIFFERENTIAL (MANUAL DIFF)
--- NOTE | 2023-07-23 08:08 | EXP.PHA.CONS ---
Pharmacy Consult Date: 07/23/23 Time: 08:08 Referring provider: DR GALVAN Reason for Consult:: VANCOMYCIN DOSING CONSULT Allergies Allergy/AdvReac Type Severity Reaction Status Date / Time No Known Allergies Allergy Unverified 07/23/23 07:29 Home Medications Medication Instructions Recorded Confirmed Type hydrochlorothiazide 25 mg tablet 25 mg PO DAILY Fluid 07/23/23 07/23/23 History losartan 50 mg tablet 50 mg PO DAILY High Blood Pressure 07/23/23 07/23/23 History sertraline 25 mg tablet 25 mg PO DAILY Mood 07/23/23 07/23/23 History New Prescriptions to Start Prescriptions: Height: 1.78 m Weight: 126.099 kg Laboratory Results:: Laboratory Results - last 24 hr 07/22/23 12:10: WBC 12.5 H, RBC 5.08, Hgb 16.2, Hct 49.7, MCV 97.9 H, MCH 31.9 H, MCHC 32.6, RDW 13.1, Plt Count 345, MPV 7.3 L, Neut % (Auto) 79.6, Lymph % (Auto) 13.5, [place] % (Auto) 4.3, Eos % (Auto) 2.1, Baso % (Auto) 0.4, Neut # (Auto) 10.0 H, Lymph # (Auto) 1.7, [place] # (Auto) 0.5, Eos # (Auto) 0.3, Baso # (Auto) 0.1, Sodium 135 L, Potassium 4.0, Chloride 103, Carbon Dioxide 28, Anion Gap 8.0, BUN 12, Creatinine 1.00, Estimated Creat Clear 133, Estimated GFR 75, Est GFR ( Amer) 91, Glucose 120 H, Hemoglobin A1c 6.0, Lactate 1.3, Calcium 8.8, Total Bilirubin 1.1, AST 40, ALT 55, Alkaline Phosphatase 93, Troponin I < 0.01, NT-Pro-B Natriuret Pep 283 H, Total Protein 7.2, Albumin 3.3 L, Globulin 3.9 H, Albumin/Globulin Ratio 0.8 L, TSH 2.21, Chlamy pneumoniae PCR TNP, Adenovirus (PCR) Not detected, B. pertussis DNA (PCR) TNP, Coronavirus OC43 (PCR) Not detected, Coronavirus HKU1 (PCR) Not detected, Coronavirus 229E (PCR) Not detected, SARS-CoV-2 (PCR) Not detected 07/22/23 12:10: SARS-CoV-2 (PCR) Not detected, Coronavirus NL63 (PCR) Not detected, Human Metapneumovir PCR Not detected, Influenza A (H1) PCR Not detected, Influ A (H1N1/09) PCR Not detected, Influenza A (H3) PCR Not detected, Influenza Type A (PCR) Not detected, Influenza A Untype (PCR) Not detected, Influenza Type B (PCR) Not detected 07/22/23 12:10: Influenza Type B (PCR) Not detected, M. pneumoniae (PCR) TNP, Parainfluenza 1 (PCR) Not detected, Parainfluenza 2 (PCR) Not detected, Parainfluenza 3 (PCR) Not detected, Parainfluenza 4 (PCR) Not detected, RSV (PCR) Not detected, Entero/Rhino (PCR) Detected A 07/22/23 12:13: VBG pH 7.38, VBG pCO2 38.8, VBG pO2 39.0, VBG HCO3 22.2 L, VBG Total CO2 23.4, VBG O2 Saturation 70.8 H, VBG Base Excess -3.0 L 07/22/23 15:09: Troponin I < 0.01 07/22/23 18:50: Troponin I < 0.01 07/23/23 06:42: WBC 15.8 H D, RBC 4.68, Hgb 15.2, Hct 45.0, MCV 96.1 H, MCH 32.4 H, MCHC 33.7, RDW 13.1, Plt Count 361, MPV 8.2, Neut % (Auto) 86.4 H, Lymph % (Auto) 8.5 L, [place] % (Auto) 5.0, Eos % (Auto) 0.0 L, Baso % (Auto) 0.1, Neut # (Auto) 13.7 H, Lymph # (Auto) 1.3, [place] # (Auto) 0.8, Eos # (Auto) 0.0, Baso # (Auto) 0.0 Medical History: Medical History (Updated 07/22/23 @ 17:53 by Bandar Galvan MD) Anxiety Hypertension Assessment and Plan Assessment and plan all Dx Assessment and Plan for all problems:: Pharmacokinetic dosing service Objective: Age: 63 yo Serum creatinine: 1.0 mg/dL Height: 70.1 Inches Weight (kg): 126.099 Diagnosis: PNEUMONIA Assessment: IBW (kg): 73.23 Dosing wt(kg): 126.099 Estimated Creatinine clearance (ml/min): 77.3 CRCL method: Cockcroft and Gault using ibw(default). Drug selected: Vancomycin Loading dose (mg): 2500 MG Vd (liters): 88.3 (factor used: 0.7 L/kg) Jona (hr-1): 0.069 Half life (hrs): 10.05 CLvanco=?? 6.093 L/hr Recommended dose: 2250 mg Interval: 18 hrs Infusion time (hrs): 2.0 Predicted peak (mcg/mL): 33.5 Predicted trough (mcg/mL): 11.11 Total body weight is being used for vancomycin dosing. Recommendations: Give Vancomycin 2250 mg q 18 hrs with an expected Cpeak of 33.5 mcg/ml and an expected Ctrough of 11.11 mcg/ml AUC 0-24 /CECILIA Data: CECILIA 0.5 mcg/mL:?? AUC/CECILIA:? 984.7 CECILIA 1.0 mcg/mL:?? AUC/CECILIA:? 492.4 --------- CECILIA 1.5 mcg/mL:?? AUC/CECILIA:? 328.2 CECILIA 2.0 mcg/mL:?? AUC/CECILIA:? 246.2 Thank you for the consult
--- NOTE | 2023-07-23 08:11 | PC.NURSE ---
PT'S OXYGEN SATURATIONS 82-83% ON VAPOTHERM WITH 40L AND 80%FIO2, NOTIFIED RT
--- NOTE | 2023-07-23 08:17 | PC.NURSE ---
RT BANEGAS AT BEDSIDE DRAWING ABG
[2023-07-23 08:32] LABS: ABG Base Excess 0.5 mmol/L (-2.4-2.3); ABG HCO3 25.3 mmhg (22.0-26.0); ABG Oxygen Saturation 90 % (90-100); ABG PCO2 41.7 mmhg (35.0-45.0); ABG TCO2 26.5 mmhg (23-27)
[2023-07-23 08:35] LABS: Allen's Test Acceptable; Oxygen 40L/80% %; Source L Radial
[2023-07-23 08:45] LABS: Chloride 106 mmol/L (98-107); Potassium 4.1 mmoL/L (3.5-5.1); Sodium 138 mmol/L (136-145)
[2023-07-23 08:48] LABS: Alanine Aminotransferase 70 U/L (12-78); Albumin Level 3.2 g/dl (3.5-5.0); Albumin/Globulin Ratio 0.9 (1.1-1.8); Alkaline Phosphatase 94 U/L (38-126); Anion Gap 9.1 mEq/L (5-15); Aspartate Amino Transferase 61 U/L (17-59); Bilirubin,Total 0.4 mg/dl (0.2-1.3); Blood Urea Nitrogen 12 mg/dl (9-20); Calcium 8.8 mg/dl (8.4-10.2); Carbon Dioxide 27 mmol/L (22.0-30.0); Creatinine Clearance Estimated 133 mL/min (50-200); Estimated Glomerular Filt Rate 97 ml/min (>60); GFR (African American) 118 ML/MIN (>60); Globulin 3.6 g/dL (1.3-3.2); Glucose 115 mg/dl (74-100); Magnesium 2.3 mg/dl (1.6-2.3); Total Protein,Serum 6.8 g/dl (6.3-8.2)
[2023-07-23] MEDS: ENOXAPARIN 40MG/0.4ML SYRINGE 40 MG SQ (08:51)
[2023-07-23] MEDS: CEFEPIME HCL 2 GM in 0.9 % SODIUM CHLORIDE 100 ML IV (08:51)
[2023-07-23] MEDS: PANTOPRAZOLE 40MG TABLET 40 MG PO (08:51)
--- NOTE | 2023-07-23 10:08 | P.CONS_ITS ---
History of Present Illness History of present illness: Mr. 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 [facility] Disclaimer: The information contained in this section may have been updated after the patient was seen, as this information can be updated by other users. Medical History Anxiety Hypertension Surgical History History of colonoscopy Family History No significant family history Social History Smoking Status: Former smoker alcohol intake: never substance use type: denies use current occupational status: retired Travel in the last 8 weeks: None household members: spouse housing: house marital status: education level: high school service: Yes [place] [facility]: No current occupation: current occupational exposures/hazards: No caffeine: Yes special jamar needs: No agree to transfusion: No do you feel safe at home: Yes victim of physical abuse: No victim of emotional abuse: No victim of sexual abuse: No would you like helpful sources: No Pulmonology Exam Inpatient Vital signs and Labs for Last 24 Hours: Temp Pulse Resp BP Pulse Ox O2 Del Method O2 Flow Rate 98.0 F 81 19 136/60 86 L Vapotherm 40 07/23/23 08:00 07/23/23 08:10 07/23/23 08:00 07/23/23 08:00 07/23/23 08:37 07/23/23 08:37 07/23/23 08:37 FiO2 80 07/23/23 08:37 Laboratory Results - last 24 hr 07/22/23 12:10: WBC 12.5 H, RBC 5.08, Hgb 16.2, Hct 49.7, MCV 97.9 H, MCH 31.9 H , MCHC 32.6, RDW 13.1, Plt Count 345, MPV 7.3 L, Neut % (Auto) 79.6, Lymph % (Auto) 13.5, [place] % (Auto) 4.3, Eos % (Auto) 2.1, Baso % (Auto) 0.4, Neut # (Auto) 10.0 H, Lymph # (Auto) 1.7, Real # (Auto) 0.5, Eos # (Auto) 0.3, Baso # (Auto) 0.1, Sodium 135 L, Potassium 4.0, Chloride 103, Carbon Dioxide 28, Anion Gap 8.0, BUN 12, Creatinine 1.00, Estimated Creat Clear 133, Estimated GFR 75, Est GFR ( Amer) 91, Glucose 120 H, Hemoglobin A1c 6.0, Lactate 1.3, Calcium 8.8, Total Bilirubin 1.1, AST 40, ALT 55, Alkaline Phosphatase 93, Troponin I < 0.01, NT-Pro-B Natriuret Pep 283 H, Total Protein 7.2, Albumin 3.3 L, Globulin 3.9 H, Albumin/Globulin Ratio 0.8 L, TSH 2.21, Chlamy pneumoniae PCR TNP, Adenovirus (PCR) Not detected, B. pertussis DNA (PCR) TNP, Coronavirus OC43 (PCR) Not detected, Coronavirus HKU1 (PCR) Not detected, Coronavirus 229E (PCR) Not detected, SARS-CoV-2 (PCR) Not detected 07/22/23 12:10: SARS-CoV-2 (PCR) Not detected, Coronavirus NL63 (PCR) Not detected, Human Metapneumovir PCR Not detected, Influenza A (H1) PCR Not detected, Influ A (H1N1/09) PCR Not detected, Influenza A (H3) PCR Not detected, Influenza Type A (PCR) Not detected, Influenza A Untype (PCR) Not detected, Influenza Type B (PCR) Not detected 07/22/23 12:10: Influenza Type B (PCR) Not detected, M. pneumoniae (PCR) TNP, Parainfluenza 1 (PCR) Not detected, Parainfluenza 2 (PCR) Not detected, Parainfluenza 3 (PCR) Not detected, Parainfluenza 4 (PCR) Not detected, RSV (PCR) Not detected, Entero/Rhino (PCR) Detected A 07/22/23 12:13: VBG pH 7.38, VBG pCO2 38.8, VBG pO2 39.0, VBG HCO3 22.2 L, VBG Total CO2 23.4, VBG O2 Saturation 70.8 H, VBG Base Excess -3.0 L 07/22/23 15:09: Troponin I < 0.01 07/22/23 18:50: Troponin I < 0.01 07/23/23 06:42: WBC 15.8 H D, RBC 4.68, Hgb 15.2, Hct 45.0, MCV 96.1 H, MCH 32.4 H, MCHC 33.7, RDW 13.1, Plt Count 361, MPV 8.2, Neut % (Auto) 86.4 H, Lymph % (Auto) 8.5 L, [place] % (Auto) 5.0, Eos % (Auto) 0.0 L, Baso % (Auto) 0.1, Neut # (Auto) 13.7 H, Lymph # (Auto) 1.3, [place] # (Auto) 0.8, Eos # (Auto) 0.0, Baso # (Auto) 0.0, Sodium 138, Potassium 4.1, Chloride 106, Carbon Dioxide 27, Anion Gap 9.1, BUN 12, Creatinine 0.80, Estimated Creat Clear 133, Estimated GFR 97, Est GFR ( Amer) 118 D, Glucose 115 H, Calcium 8.8, Magnesium 2.3, Total Bilirubin 0.4, AST 61 H D, ALT 70 D, Alkaline Phosphatase 94, Total Protein 6.8, Albumin 3.2 L, Globulin 3.6 H, Albumin/Globulin Ratio 0.9 L 07/23/23 08:13: Specimen Source L radial, O2 % 40l/80%, ABG pH 7.40, ABG pCO2 41.7, ABG pO2 59.0 L, ABG HCO3 25.3, ABG Total CO2 26.5, ABG O2 Saturation 90, ABG Base Excess 0.5, Emigdio Test Acceptable I & O for Labs for Last 24 Hours: Intake & Output 07/20/23 07/21/23 07/22/23 07/23/23 23:59 23:59 23:59 23:59 Intake Total 880 / 880 210 / 210 Output Total 0 / 0 0 / 0 Balance 880 / 880 210 / 210 Weight 278 lb 278 lb 0.011 oz Constitutional: Present severe distress Head: Present normocephalic and atraumatic ENT: Present normal exam, normal oropharynx and mucous membranes moist Neck: Present normal inspection and full ROM Respiratory: Present respiratory distress; Absent wheezes or able to speak in complete sentences Cardiac: Present S1/S2, Tachycardia and radial pulses present GI: Present soft and distention; Absent tenderness or guarding Skin: Present intact; Absent cyanosis or jaundice Neuro: Present alert, awake and oriented x 3 Extremities: Present normal inspection; Absent clubbing or cyanosis Psychiatric: Present normal affect and cooperative Meds Home Medications and Allergies Home Medications Medication Instructions Recorded Confirmed Type hydrochlorothiazide 25 mg tablet 25 mg PO DAILY Fluid 07/23/23 07/23/23 History losartan 50 mg tablet 50 mg PO DAILY High Blood Pressure 07/23/23 07/23/23 History sertraline 25 mg tablet 25 mg PO DAILY Mood 07/23/23 07/23/23 History New Prescriptions to Start Prescriptions: Allergies Allergy/AdvReac Type Severity Reaction Status Date / Time No Known Allergies Allergy Unverified 07/23/23 07:29 Results Laboratory Findings 07/23/23 06:42 07/23/23 06:42 ABG ABG pH 7.40 mmol/L (7.35-7.45) 07/23/23 08:13 ABG pCO2 41.7 mmhg (35.0-45.0) 07/23/23 08:13 ABG pO2 59.0 mmhg (80-100) L 07/23/23 08:13 ABG O2 Saturation 90 % (90-100) 07/23/23 08:13 Abnormal lab findings: Abnormal Labs 07/22/23 07/22/23 07/23/23 12:10 12:13 06:42 WBC 12.5 H 15.8 H D MCV 97.9 H 96.1 H MCH 31.9 H 32.4 H MPV 7.3 L Neut % (Auto) 86.4 H Lymph % (Auto) 8.5 L Eos % (Auto) 0.0 L Neut # (Auto) 10.0 H 13.7 H ABG pO2 VBG HCO3 22.2 L VBG O2 Saturation 70.8 H VBG Base Excess -3.0 L Sodium 135 L Glucose 120 H 115 H AST 61 H D NT-Pro-B Natriuret Pep 283 H Albumin 3.3 L 3.2 L Globulin 3.9 H 3.6 H Albumin/Globulin Ratio 0.8 L 0.9 L Entero/Rhino (PCR) Detected A 07/23/23 08:13 WBC MCV MCH MPV Neut % (Auto) Lymph % (Auto) Eos % (Auto) Neut # (Auto) ABG pO2 59.0 L VBG HCO3 VBG O2 Saturation VBG Base Excess Sodium Glucose AST NT-Pro-B Natriuret Pep Albumin Globulin Albumin/Globulin Ratio Entero/Rhino (PCR) Assessment and Plan *Assessment and plan (1) Multifocal pneumonia: Status: Acute Category: Medical Code(s): J18.9 - Pneumonia, unspecified organism (2) Severe sepsis: Status: Acute Category: Medical Code(s): A41.9 - Sepsis, unspecified organism; R65.20 - Severe sepsis without septic shock (3) Acute hypoxic respiratory failure: Status: Acute Category: Medical Code(s): J96.01 - Acute respiratory failure with hypoxia Plan Mr. 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 Patient found to be having positive for Rhino virus CT upon admission evidence of pulm emphysema bilateral diffuse patchy groundglass opacities, subpleural predominance with no significant effusions noted. Chest x-ray from 2019 clear with no acute infiltrates. No other recent prior imaging available for comparison. Neutrophilic predominant leukocytosis upon admission. Patient upon admission was initiated on vancomycin and cefepime and azithromy troy. Etiology of this patient current worsening respiratory distress does not appear to be just a combination of his COPD and Rhino virus pneumonia , also concerning for underlying possible interstitial lung disease. Denies any recent hospitalizations. Plan: Continue O2 supplement maintain O2 saturation 90% and above. Currently on high flow nasal cannula 30 L 85%. Antibiotics can be weaned to ceftriaxone erythromycin pending culture results Follow the basic autoimmune workup Continue DuoNebs every 6 hours along with Pulmicort every 12 scheduled Initiate methylprednisolone 40 mg IV daily # Thank you for involving pulmonary in this patient care. Will continue to follow.
[2023-07-23] MEDS: VANCOMYCIN HCL 2,250 MG in 0.9 % SODIUM CHLORIDE 250 ML 125 MG IV (12:15)
[2023-07-23 12:34] LABS: Lymphocytes % 10 % (10-50); Monocytes % 6 % (2-9); Neutrophils % 84 % (42-76); Platelet Estimate Normal; RBC Morphology Normal; Total Cells Counted 100
[2023-07-23] MEDS: IRBESARTAN 75MG TABLET 75 MG PO (13:54)
[2023-07-23] MEDS: hydroCHLOROthiazide 25MG TABLET 25 MG PO (13:54)
[2023-07-23] MEDS: METHYLPREDNISOLONE SOD SUCC 40MG VIAL 40 MG IV (13:54)
--- NOTE | 2023-07-23 14:03 | PC.NURSE ---
20g piv left ac removed, attempted to start new iv without success, called house TJ to try and start ultra sound guided iv so can get antibiotics given
[2023-07-23 16:21] LABS: C-Reactive Protein 150.1 mg/L (0-4)
[2023-07-23] MEDS: AZITHROMYCIN 500 MG in 0.9 % SODIUM CHLORIDE 250 ML 250 MG IV (16:47)
[2023-07-23] MEDS: BUDESONIDE 0.5MG/2ML NEB 0.5 MG IH (18:27)
--- NOTE | 2023-07-23 19:08 | P.PN_ITS ---
Subjective *Date: 07/23/23 *Time: 22:54 Interval history: Patient feeling better this morning. Comfortable on Vapotherm at 40 L and 80%. Sats appropriate in the low 90s. Denies any chest pain. Cough nonproductive. No nausea or vomiting. Tolerating p.o. intake. Afebrile Medical Exam Vital signs and Labs for Last 24 Hours: Vital Signs Temp Pulse Pulse Resp BP Pulse Ox O2 Del Method 07/23/23 18:49 Vapotherm 07/23/23 18:00 68 27 H 91 L Vapotherm 07/23/23 18:45 81 07/23/23 18:45 87 07/23/23 18:45 91 L Vapotherm 07/23/23 16:00 99.1 F 07/23/23 16:00 93 L Vapotherm 07/23/23 16:00 85 21 115/68 93 L Vapotherm 07/23/23 17:00 Vapotherm 07/23/23 12:00 90 07/23/23 08:00 90 07/23/23 16:00 87 07/23/23 14:36 Vapotherm 07/23/23 14:00 80 169/74 H 92 L Vapotherm 07/23/23 12:00 98.7 F 07/23/23 13:00 81 22 127/71 89 L Vapotherm 07/23/23 12:00 85 21 89 L Vapotherm 07/23/23 13:00 Vapotherm 07/23/23 11:00 92 H 114/58 L 92 L Vapotherm 07/23/23 11:28 83 07/23/23 11:28 83 07/23/23 11:28 94 L Vapotherm 07/23/23 10:00 81 22 93 L Vapotherm 07/23/23 10:55 Vapotherm 07/23/23 09:00 Vapotherm 07/23/23 09:00 89 19 154/78 H 88 L Vapotherm 07/23/23 08:00 98.0 F 07/23/23 08:37 86 L Vapotherm 07/23/23 08:10 81 82 L Vapotherm 07/23/23 08:00 89 19 136/60 87 L Vapotherm 07/23/23 07:00 Vapotherm 07/23/23 06:00 78 20 138/78 87 L Vapotherm 07/23/23 06:00 25 L 07/23/23 06:00 87 07/23/23 06:00 Vapotherm 07/23/23 04:00 80 07/23/23 00:00 81 07/23/23 02:00 81 17 130/61 93 L Vapotherm 07/23/23 01:00 Vapotherm 07/23/23 00:00 98.5 F 85 16 138/80 88 L Vapotherm 07/22/23 20:00 90 07/22/23 23:44 Vapotherm 07/22/23 23:44 83 07/23/23 05:00 Vapotherm 07/23/23 04:00 98.2 F 83 22 150/95 H 89 L Vapotherm 07/23/23 03:00 Vapotherm 07/22/23 23:00 Vapotherm 07/22/23 22:00 80 22 121/58 L 93 L Vapotherm 07/22/23 21:00 Vapotherm 07/22/23 20:00 98.5 F 91 H 17 158/76 H 91 L 07/22/23 20:00 Vapotherm O2 Flow Rate FiO2 07/23/23 18:49 30 07/23/23 18:00 30 85 07/23/23 18:45 07/23/23 18:45 07/23/23 18:45 30 85 07/23/23 16:00 07/23/23 16:00 30 85 07/23/23 16:00 30 07/23/23 17:00 30 07/23/23 12:00 07/23/23 08:00 07/23/23 16:00 07/23/23 14:36 30 07/23/23 14:00 07/23/23 12:00 07/23/23 13:00 07/23/23 12:00 07/23/23 13:00 30 07/23/23 11:00 07/23/23 11:28 07/23/23 11:28 07/23/23 11:28 07/23/23 10:00 40 85 07/23/23 10:55 40 07/23/23 09:00 40 07/23/23 09:00 40 85 07/23/23 08:00 02/12/24 08:37 40 80 07/23/23 08:10 40 80 07/23/23 08:00 40 80 07/23/23 07:00 07/23/23 06:00 40 80 07/23/23 06:00 07/23/23 06:00 07/23/23 06:00 40 80 07/23/23 04:00 07/23/23 00:00 07/23/23 02:00 40 80 07/23/23 01:00 07/23/23 00:00 07/22/23 20:00 07/22/23 23:44 40 80 07/22/23 23:44 07/23/23 05:00 07/23/23 04:00 40 80 07/23/23 03:00 07/22/23 23:00 07/22/23 22:00 40 80 07/22/23 21:00 07/22/23 20:00 07/22/23 20:00 40 80 Intake and Output 07/23/23 07/23/23 07/23/23 07:59 15:59 23:59 Intake Total 1170 / 1340 170 / 1340 Output Total 0 / 0 0 / 0 Balance 0 / 1340 1170 / 1340 170 / 1340 Intake: Intake, Oral Amount 1170 / 1340 170 / 1340 Output: Output, Urine Amount 0 / 0 0 / 0 Other: Number of Voids 2 Number of Unmeasured Voids 1 2 1 Weight 126.099 kg 126.099 kg Patient Weight 07/23/23 23:59 Weight 126.099 kg Laboratory Results - last 24 hr 07/22/23 18:50: Troponin I < 0.01 07/23/23 06:42: WBC 15.8 H D, RBC 4.68, Hgb 15.2, Hct 45.0, MCV 96.1 H, MCH 32.4 H, MCHC 33.7, RDW 13.1, Plt Count 361, MPV 8.2, Neut % (Auto) 86.4 H, Lymph % (Auto) 8.5 L, [place] % (Auto) 5.0, Eos % (Auto) 0.0 L, Baso % (Auto) 0.1, Neut # (Auto) 13.7 H, Lymph # (Auto) 1.3, [place] # (Auto) 0.8, Eos # (Auto) 0.0, Baso # (Auto) 0.0, Total Counted 100, Neutrophils % (Manual) 84 H, Lymphocytes % (Manual) 10, Monocytes % (Manual) 6, Platelet Estimate Normal, RBC Morphology Normal, Sodium 138, Potassium 4.1, Chloride 106, Carbon Dioxide 27, Anion Gap 9.1, BUN 12, Creatinine 0.80, Estimated Creat Clear 133, Estimated GFR 97, Est GFR ( Amer) 118 D, Glucose 115 H, Calcium 8.8, Magnesium 2.3, Total Bilirubin 0.4, AST 61 H D, ALT 70 D, Alkaline Phosphatase 94, C-Reactive Protein 150.1 H, Total Protein 6.8, Albumin 3.2 L, Globulin 3.6 H, Albumin/Globulin Ratio 0.9 L 07/23/23 08:13: Specimen Source L radial, O2 % 40l/80%, ABG pH 7.40, ABG pCO2 41.7, ABG pO2 59.0 L, ABG HCO3 25.3, ABG Total CO2 26.5, ABG O2 Saturation 90, ABG Base Excess 0.5, Emigdio Test Acceptable I & O for Labs for Last 24 Hours: Intake & Output 07/20/23 07/21/23 07/22/23 07/23/23 23:59 23:59 23:59 23:59 Intake Total 880 / 880 1340 / 1340 Output Total 0 / 0 0 / 0 Balance 880 / 880 1340 / 1340 Weight 126.099 kg 126.099 kg Constitutional: Present no acute distress, obese and cooperative Head: Present atraumatic and normocephalic ENT: Present normal exam Neck: Present normal inspection Respiratory: Present crackles and normal respiratory effort; Absent rhonchi or wheezes Cardiac: Present Reg Rate and Rhythm GI: Present soft and normal bowel sounds; Absent distention or tenderness Extremities: Present normal inspection and full ROM; Absent edema Skin: Present intact; Absent erythema Neuro: Present Grossly Intact, alert, awake, oriented x 3 and moves all extremities Assessment and Plan *Assessment and plan (1) Severe sepsis: Status: Acute Category: Medical Code(s): A41.9 - Sepsis, unspecified organism; R65.20 - Severe sepsis without septic shock (2) Multifocal pneumonia: Status: Acute Category: Medical Code(s): J18.9 - Pneumonia, unspecified organism (3) Acute hypoxic respiratory failure: Status: Acute Category: Medical Code(s): J96.01 - Acute respiratory failure with hypoxia (4) Acute exacerbation of chronic obstructive pulmonary disease: Status: Acute Category: Medical Code(s): J44.1 - Chronic obstructive pulmonary disease with (acute) exacerbation (5) Hypertension: Status: Acute Category: Medical Code(s): I10 - Essential (primary) hypertension (6) Class II obesity: Status: Acute Category: Medical Code(s): E66.9 - Obesity, unspecified Plan 63-year-old male who presents with a week of worsening shortness of breath. Found to be in hypoxemic respiratory failure. Discussed case with ER, request admission for treatment of multifocal pneumonia, new oxygen requirement, sepsis. Medicine agreed to admit for further management. Differential diagnosis includes atypical pneumonia, viral pneumonia, COVID, flu. COVID and flu negative however symptoms been going on for over a week. Had extensive exposure with large group of family at a prior to symptom onset. Comprehensive panel positive for rhino/entero-. Pulmonology evaluated patient today. Continues to require inpatient management. Problems addressed as follows: Severe sepsis with acute hypoxemic respiratory failure secondary to multifocal pneumonia -Pulmonology consulted, appreciate their recommendations. Discussed case today, will continue with Vapotherm, weaned to 30 L and 80%. Recommend adjusting antibiotics to ceftriaxone and azithromycin. Continue O2 supplement maintain O2 saturation 90% and above. Currently on high flow nasal cannula 30 L 85%. Follow the basic autoimmune workup - Continue DuoNebs every 6 hours along with Pulmicort every 12 scheduled - Initiate methylprednisolone 40 mg IV daily - DuoNebs every 6 hours scheduled - Repeat CBC, CMP, magnesium ordered for the morning History of hypertension: Holding losartan in the setting of sepsis. Mood disorder: Continue sertraline 50 mg daily GERD: Continue pantoprazole 40 mg daily Class II obesity complicates all aspects of his care Full code Lovenox 40 mg daily Regular diet
[2023-07-23] MEDS: CEFTRIAXONE SODIUM 1 GM in 0.9 % SODIUM CHLORIDE 50 ML IV (21:55)
[2023-07-24] VITALS (21 sets, daily range): BP systolic 110–177; BP diastolic 59–82; PULSE 62–101; RESP 15–29; TEMP 36.4–37.2; O2SAT 90–100; BMI 39.8; BMI 39.7
[2023-07-24 04:47] LABS: Basophils % 0.2 % (0.1-2.0); Eosinophils # 0.1 K/mm3 (0.0-0.4); Eosinophils % 0.5 % (0.1-12.0); Hematocrit 45.6 % (42.0-52.0); Hemoglobin 14.7 g/dL (14.1-18.0); Lymphocytes # 1.5 K/mm3 (0.7-4.5); Lymphocytes % 11.3 % (10-50); Mean Corpuscular HGB Conc 32.3 g/dL (31.8-35.4); Mean Corpuscular Hemoglobin 31.5 pg (27.0-31.2); Mean Corpuscular Volume 97.5 fl (80-94); Mean Platelet Volume 7.4 fl (7.4-10.4); Monocytes # 0.5 K/mm3 (0.1-1.0); Monocytes % 3.5 % (1.7-9.3); Neutrophils % 84.4 % (37.0-80.0); Platelet Count 365 K/mm3 (142-424); Red Blood Count 4.68 M/mm3 (4.60-6.20)
[2023-07-24 05:03] LABS: Alanine Aminotransferase 103 U/L (12-78); Albumin/Globulin Ratio 0.9 (1.1-1.8); Alkaline Phosphatase 76 U/L (38-126); Anion Gap 8.1 mEq/L (5-15); Aspartate Amino Transferase 62 U/L (17-59); Bilirubin,Total 0.5 mg/dl (0.2-1.3); Blood Urea Nitrogen 13 mg/dl (9-20); Calcium 8.8 mg/dl (8.4-10.2); Carbon Dioxide 30 mmol/L (22.0-30.0); Chloride 103 mmol/L (98-107); Creatinine Clearance Estimated 133 mL/min (50-200); Estimated Glomerular Filt Rate 85 ml/min (>60); GFR (African American) 103 ML/MIN (>60); Globulin 3.5 g/dL (1.3-3.2); Glucose 139 mg/dl (74-100); Magnesium 2.3 mg/dl (1.6-2.3); Potassium 4.1 mmoL/L (3.5-5.1); Sodium 137 mmol/L (136-145); Total Protein,Serum 6.5 g/dl (6.3-8.2)
[2023-07-24 05:08] LABS: Vancomycin,Trough 7.1 ug/mL (5.0-10.0)
[2023-07-24] MEDS: IPRATROPIUM/ALBUTEROL 3 ML NEB IH ×4 (06:00→23:25)
[2023-07-24] MEDS: BUDESONIDE 0.5MG/2ML NEB 0.5 MG IH ×2 (06:01→18:19)
[2023-07-24] MEDS: VANCOMYCIN HCL 2,250 MG in 0.9 % SODIUM CHLORIDE 250 ML 125 MG IV (06:15)
--- NOTE | 2023-07-24 08:16 | P.CONPHA_ITS ---
Pharmacy Consult Date: 07/24/23 Time: 08:16 Referring provider: DR. GALVAN Reason for Consult:: VANCOMYCIN LEVEL AND DOSE CHANGE Allergies Allergy/AdvReac Type Severity Reaction Status Date / Time No Known Allergies Allergy Unverified 07/23/23 07:29 Home Medications Medication Instructions Recorded Confirmed Type hydrochlorothiazide 25 mg tablet 25 mg PO DAILY Fluid 07/23/23 07/23/23 History losartan 50 mg tablet 50 mg PO DAILY High Blood Pressure 07/23/23 07/23/23 History sertraline 25 mg tablet 25 mg PO DAILY Mood 07/23/23 07/23/23 History New Prescriptions to Start Prescriptions: Height: 1.78 m Weight: 126.099 kg Laboratory Results:: Laboratory Results - last 24 hr 07/23/23 06:42: Total Counted 100, Neutrophils % (Manual) 84 H, Lymphocytes % (Manual) 10, Monocytes % (Manual) 6, Platelet Estimate Normal, RBC Morphology Normal, Sodium 138, Potassium 4.1, Chloride 106, Carbon Dioxide 27, Anion Gap 9.1, BUN 12, Creatinine 0.80, Estimated Creat Clear 133, Estimated GFR 97, Est GFR ( Amer) 118 D, Glucose 115 H, Calcium 8.8, Magnesium 2.3, Total Bilirubin 0.4, AST 61 H D, ALT 70 D, Alkaline Phosphatase 94, C-Reactive Protein 150.1 H, Total Protein 6.8, Albumin 3.2 L, Globulin 3.6 H, Albumin/Globulin Ratio 0.9 L 07/23/23 08:13: Specimen Source L radial, O2 % 40l/80%, ABG pH 7.40, ABG pCO2 41.7, ABG pO2 59.0 L, ABG HCO3 25.3, ABG Total CO2 26.5, ABG O2 Saturation 90, ABG Base Excess 0.5, Emigdio Test Acceptable 07/24/23 04:40: WBC 13.0 H, RBC 4.68, Hgb 14.7, Hct 45.6, MCV 97.5 H, MCH 31.5 H , MCHC 32.3, RDW 13.0, Plt Count 365, MPV 7.4, Neut % (Auto) 84.4 H, Lymph % (Auto) 11.3, [place] % (Auto) 3.5, Eos % (Auto) 0.5, Baso % (Auto) 0.2, Neut # (Auto) 11.0 H, Lymph # (Auto) 1.5, [place] # (Auto) 0.5, Eos # (Auto) 0.1, Baso # (Auto) 0.0, Sodium 137, Potassium 4.1, Chloride 103, Carbon Dioxide 30, Anion Gap 8.1, BUN 13, Creatinine 0.90, Estimated Creat Clear 133, Estimated GFR 85, Est GFR ( Amer) 103, Glucose 139 H D, Calcium 8.8, Magnesium 2.3, Total Bilirubin 0.5, AST 62 H, ALT 103 H D, Alkaline Phosphatase 76, Total Protein 6.5, Albumin 3.0 L, Globulin 3.5 H, Albumin/Globulin Ratio 0.9 L, Vancomycin Trough 7.1 Medical History: Medical History (Updated 07/22/23 @ 17:53 by Bandar Galvan MD) Anxiety Hypertension Assessment and Plan Assessment and plan all Dx Assessment and Plan for all problems:: Pharmacokinetic dosing service Objective: Patient: Floor: Age: 63 yo Serum creatinine: 1 mg/dL Height: 70.1 Inches Weight (kg): 126 Assessment: IBW (kg): 73.23 Dosing wt(kg): 126 Estimated Creatinine clearance (ml/min): 77.3 CRCL method: Cockcroft and Gault using ibw(default). Drug selected: Vancomycin Loading dose (mg): 0 Vd (liters): 100.8 (factor used: 0.8 L/kg) Jona (hr-1): 0.069 Half life (hrs): 10.05 Recommended dose: 2000 mg Interval: 12 hrs Infusion time (hrs): 2.0 Predicted peak (mcg/mL): 32.9 Predicted trough (mcg/mL): 16.50 Total body weight is being used for vancomycin dosing. Recommendations: VANCOMYCIN TROUGH LEVEL WAS 7.1 MCG/ML THIS AM PRIOR TO 3RD DOSE AT VANCOMYCIN 2250 MG Q18H. RECOMMEND Vancomycin 2000 mg q 12 hrs with an expected Cpeak of 32.9 mcg/ml and an expected Ctrough of 16.50 mcg/ml. ----Vanco only - ignore for aminoglycosides----- CLvanco= 6.96 L/hr AUC 0-24 /CECILIA Data: CECILIA 0.5 mcg/mL: AUC/CECILIA: 1149.4 CECILIA 1.0 mcg/mL: AUC/CECILIA: 574.7 --------- CECILIA 1.5 mcg/mL: AUC/CECILIA: 383.1 CECILIA 2.0 mcg/mL: AUC/CECILIA: 287.4
[2023-07-24] MEDS: IRBESARTAN 75MG TABLET 75 MG PO (08:21)
[2023-07-24] MEDS: PANTOPRAZOLE 40MG TABLET 40 MG PO (08:21)
[2023-07-24] MEDS: METHYLPREDNISOLONE SOD SUCC 40MG VIAL 40 MG IV (08:21)
[2023-07-24] MEDS: hydroCHLOROthiazide 25MG TABLET 25 MG PO (08:22)
[2023-07-24] MEDS: SERTRALINE 50MG TABLET 25 MG PO (08:22)
[2023-07-24] MEDS: ENOXAPARIN 40MG/0.4ML SYRINGE 40 MG SQ (08:30)
[2023-07-24 10:05] LABS: Vancomycin,Peak 26.6 ug/ml (11-39)
--- NOTE | 2023-07-24 10:07 | P.PN_ITS ---
Subjective *Date: 07/24/23 *Time: 11:32 Interval history: No acute respiratory vents overnight. Patient denies any new respiratory complaints. Continued to complain of respiratory distress predominantly with exertion. Pulmonology Exam Inpatient Vital signs and Labs for Last 24 Hours: Temp Pulse Resp BP Pulse Ox O2 Del Method O2 Flow Rate 98.9 F 72 18 110/66 90 L Vapotherm 30 07/24/23 08:00 07/24/23 08:00 07/24/23 08:00 07/24/23 08:00 07/24/23 08:00 07/24/23 09:00 07/24/23 09:00 FiO2 85 07/24/23 08:00 Laboratory Results - last 24 hr 07/23/23 06:42: Total Counted 100, Neutrophils % (Manual) 84 H, Lymphocytes % (Manual) 10, Monocytes % (Manual) 6, Platelet Estimate Normal, RBC Morphology Normal, C-Reactive Protein 150.1 H 07/24/23 04:40: WBC 13.0 H, RBC 4.68, Hgb 14.7, Hct 45.6, MCV 97.5 H, MCH 31.5 H , MCHC 32.3, RDW 13.0, Plt Count 365, MPV 7.4, Neut % (Auto) 84.4 H, Lymph % (Auto) 11.3, [place] % (Auto) 3.5, Eos % (Auto) 0.5, Baso % (Auto) 0.2, Neut # (Auto) 11.0 H, Lymph # (Auto) 1.5, [place] # (Auto) 0.5, Eos # (Auto) 0.1, Baso # (Auto) 0.0, Sodium 137, Potassium 4.1, Chloride 103, Carbon Dioxide 30, Anion Gap 8.1, BUN 13, Creatinine 0.90, Estimated Creat Clear 133, Estimated GFR 85, Est GFR ( Amer) 103, Glucose 139 H D, Calcium 8.8, Magnesium 2.3, Total Bilirubin 0.5, AST 62 H, ALT 103 H D, Alkaline Phosphatase 76, Total Protein 6.5, Albumin 3.0 L, Globulin 3.5 H, Albumin/Globulin Ratio 0.9 L, Vancomycin Trough 7.1 I & O for Labs for Last 24 Hours: Intake & Output 07/21/23 07/22/23 07/23/23 02/13/24 23:59 23:59 23:59 23:59 Intake Total 880 / 880 1340 / 1340 Output Total 0 / 0 0 / 0 0 / 0 Balance 880 / 880 1340 / 1340 0 / 0 Weight 278 lb 278 lb 0.011 oz 278 lb 0.011 oz Constitutional: Present severe distress Head: Present normocephalic and atraumatic ENT: Present normal exam, normal oropharynx and mucous membranes moist Neck: Present normal inspection and full ROM Respiratory: Present respiratory distress and able to speak in complete sentences; Absent wheezes Cardiac: Present S1/S2, Tachycardia and radial pulses present GI: Present soft and distention; Absent tenderness or guarding Skin: Present intact; Absent cyanosis or jaundice Neuro: Present alert, awake and oriented x 3 Extremities: Present normal inspection; Absent clubbing or cyanosis Psychiatric: Present normal affect and cooperative Assessment and Plan *Assessment and plan (1) Multifocal pneumonia: Status: Acute Category: Medical Code(s): J18.9 - Pneumonia, unspecified organism (2) Severe sepsis: Status: Acute Category: Medical Code(s): A41.9 - Sepsis, unspecified organism; R65.20 - Severe sepsis without septic shock (3) Acute hypoxic respiratory failure: Status: Acute Category: Medical Code(s): J96.01 - Acute respiratory failure with hypoxia Plan Mr. 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 Patient found to be having positive for Rhino virus CT upon admission evidence of pulm emphysema bilateral diffuse patchy groundglass opacities, subpleural predominance with no significant effusions noted. Chest x-ray from 2019 clear with no acute infiltrates. No other recent prior imaging available for comparison. Neutrophilic predominant leukocytosis upon admission. Etiology of this patient current worsening respiratory distress does not appear to be just a combination of his COPD and Rhino virus pneumonia , also concerning for underlying possible interstitial lung disease. Denies any recent hospitalizations. Interval update Antibiotics were weaned to ceftriaxone and azithromycin. CRP elevated at 150. Rest of the lab work pending. Plan: Continue O2 supplement maintain O2 saturation 90% and above. Currently on high flow nasal cannula 30 L, 70%. Will continue to wean as tolerated. Continue ceftriaxone azithromycin pending culture results Follow the basic autoimmune workup Continue DuoNebs every 6 hours along with Pulmicort every 12 scheduled Continue methylprednisolone 40 mg IV daily # Thank you for involving pulmonary in this patient care. Will continue to follow.
[2023-07-24] MEDS: AZITHROMYCIN 500 MG in 0.9 % SODIUM CHLORIDE 250 ML 250 MG IV (11:23)
--- NOTE | 2023-07-24 13:58 | P.PN_ITS ---
Subjective *Date: 07/24/23 *Time: 13:58 Interval history: No acute events overnight. Continues on Vapotherm 30 L, weaned to 80% this morning. Sats appropriate in the low 90s. Denies any chest pain. Cough nonproductive. No nausea or vomiting. Tolerating p.o. intake. Afebrile. Easily winded with exertion Medical Exam Vital signs and Labs for Last 24 Hours: Vital Signs Temp Pulse Pulse Resp BP Pulse Ox O2 Del Method 07/24/23 12:53 Vapotherm 07/24/23 11:33 93 L Vapotherm 07/24/23 11:17 93 L Vapotherm 07/24/23 11:16 101 H 07/24/23 11:16 89 07/24/23 11:12 97.6 F 07/24/23 10:33 Vapotherm 07/24/23 10:00 76 20 117/65 93 L Vapotherm 07/24/23 09:00 Vapotherm 07/24/23 08:00 72 18 110/66 90 L Vapotherm 07/24/23 08:00 95 Vapotherm 07/24/23 08:00 98.9 F 07/24/23 06:45 Vapotherm 07/24/23 06:00 85 07/24/23 06:00 89 07/24/23 06:00 94 L Vapotherm 07/23/23 23:33 75 07/23/23 23:33 65 07/23/23 20:00 89 18 129/60 Vapotherm 07/24/23 06:00 64 18 147/82 H 95 Vapotherm 07/24/23 05:00 Vapotherm 07/24/23 04:00 70 20 125/59 L 97 Vapotherm 07/24/23 04:00 Vapotherm 07/24/23 03:00 Vapotherm 07/24/23 02:00 62 22 121/62 94 L 07/24/23 01:00 Vapotherm 07/24/23 00:00 68 15 122/69 100 Vapotherm 07/23/23 23:00 Vapotherm 07/23/23 22:00 73 20 125/69 Vapotherm 07/23/23 21:00 Vapotherm 07/23/23 20:00 Vapotherm 07/23/23 20:21 99.0 F 07/23/23 18:49 Vapotherm 07/23/23 18:00 68 27 H 91 L Vapotherm 07/23/23 18:45 81 07/23/23 18:45 87 07/23/23 18:45 91 L Vapotherm 07/23/23 16:00 99.1 F 07/23/23 16:00 93 L Vapotherm 07/23/23 16:00 85 21 115/68 93 L Vapotherm 07/23/23 17:00 Vapotherm 07/23/23 16:00 87 07/23/23 14:36 Vapotherm 07/23/23 14:00 80 169/74 H 92 L Vapotherm O2 Flow Rate FiO2 07/24/23 12:53 30 07/24/23 11:33 30 60 07/24/23 11:17 30 70 07/24/23 11:16 07/24/23 11:16 07/24/23 11:12 07/24/23 10:33 30 07/24/23 10:00 30 80 07/24/23 09:00 30 07/24/23 08:00 30 85 07/24/23 08:00 30 85 07/24/23 08:00 07/24/23 06:45 07/24/23 06:00 07/24/23 06:00 07/24/23 06:00 30 85 07/23/23 23:33 07/23/23 23:33 07/23/23 20:00 30 85 07/24/23 06:00 30 85 07/24/23 05:00 07/24/23 04:00 30 85 07/24/23 04:00 30 85 07/24/23 03:00 07/24/23 02:00 30 85 07/24/23 01:00 07/24/23 00:00 07/23/23 23:00 07/23/23 22:00 30 85 07/23/23 21:00 07/23/23 20:00 30 85 07/23/23 20:21 07/23/23 18:49 30 07/23/23 18:00 30 85 07/23/23 18:45 07/23/23 18:45 07/23/23 18:45 30 85 07/23/23 16:00 02/12/24 16:00 30 85 07/23/23 16:00 30 07/23/23 17:00 30 07/23/23 16:00 07/23/23 14:36 30 07/23/23 14:00 Intake and Output 07/23/23 07/24/23 07/24/23 23:59 07:59 15:59 Intake Total 170 / 1340 470 / 470 Output Total 0 / 0 0 / 0 0 / 0 Balance 170 / 1340 0 / 470 470 / 470 Intake: Intake, Oral Amount 170 / 1340 470 / 470 Output: Output, Urine Amount 0 / 0 0 / 0 0 / 0 Other: Number of Unmeasured Voids 1 1 1 Weight 126.099 kg 126 kg Patient Weight 07/24/23 23:59 Weight 126 kg Laboratory Results - last 24 hr 07/23/23 06:42: C-Reactive Protein 150.1 H 07/24/23 04:40: WBC 13.0 H, RBC 4.68, Hgb 14.7, Hct 45.6, MCV 97.5 H, MCH 31.5 H , MCHC 32.3, RDW 13.0, Plt Count 365, MPV 7.4, Neut % (Auto) 84.4 H, Lymph % (Auto) 11.3, [place] % (Auto) 3.5, Eos % (Auto) 0.5, Baso % (Auto) 0.2, Neut # (Auto) 11.0 H, Lymph # (Auto) 1.5, [place] # (Auto) 0.5, Eos # (Auto) 0.1, Baso # (Auto) 0.0, Sodium 137, Potassium 4.1, Chloride 103, Carbon Dioxide 30, Anion Gap 8.1, BUN 13, Creatinine 0.90, Estimated Creat Clear 133, Estimated GFR 85, Est GFR ( Amer) 103, Glucose 139 H D, Calcium 8.8, Magnesium 2.3, Total Bilirubin 0.5, AST 62 H, ALT 103 H D, Alkaline Phosphatase 76, Total Protein 6.5, Albumin 3.0 L, Globulin 3.5 H, Albumin/Globulin Ratio 0.9 L, Vancomycin Trough 7.1 07/24/23 09:30: Vancomycin Peak 26.6 I & O for Labs for Last 24 Hours: Intake & Output 07/21/23 07/22/23 07/23/23 07/24/23 23:59 23:59 23:59 23:59 Intake Total 880 / 880 1340 / 1340 470 / 470 Output Total 0 / 0 0 / 0 0 / 0 Balance 880 / 880 1340 / 1340 470 / 470 Weight 126.099 kg 126.099 kg 126 kg Constitutional: Present no acute distress, obese and cooperative Head: Present atraumatic and normocephalic ENT: Present normal exam Neck: Present normal inspection Respiratory: Present normal respiratory effort; Absent rhonchi, wheezes or crackles Cardiac: Present Reg Rate and Rhythm GI: Present soft and normal bowel sounds; Absent distention or tenderness Extremities: Present normal inspection and full ROM; Absent edema Skin: Present intact; Absent erythema Neuro: Present Grossly Intact, alert, awake, oriented x 3 and moves all extremities Assessment and Plan *Assessment and plan (1) Acute hypoxic respiratory failure: Status: Acute Category: Medical Code(s): J96.01 - Acute respiratory failure with hypoxia (2) Severe sepsis: Status: Acute Category: Medical Code(s): A41.9 - Sepsis, unspecified organism; R65.20 - Severe sepsis without septic shock (3) Multifocal pneumonia: Status: Acute Category: Medical Code(s): J18.9 - Pneumonia, unspecified organism (4) Acute exacerbation of chronic obstructive pulmonary disease: Status: Acute Category: Medical Code(s): J44.1 - Chronic obstructive pulmonary disease with (acute) exacerbation (5) Hypertension: Status: Acute Category: Medical Code(s): I10 - Essential (primary) hypertension (6) Class II obesity: Status: Acute Category: Medical Code(s): E66.9 - Obesity, unspecified Plan 63-year-old male who presents with a week of worsening shortness of breath. Found to be in hypoxemic respiratory failure. Discussed case with ER, request admission for treatment of multifocal pneumonia, new oxygen requirement, sepsis. Medicine agreed to admit for further management. Differential diagnosis includes atypical pneumonia, viral pneumonia, COVID, flu. COVID and flu negative however symptoms been going on for over a week. Had extensive exposure with large group of family at a prior to symptom onset. Comprehensive panel positive for rhino/entero. Pulmonology consulted and assisting with care. Continues to require inpatient management given his severity of respiratory failure and oxygen requirement. Anticipate slow recovery over the coming days. Problems addressed as follows: Severe sepsis, improving Acute hypoxemic respiratory failure secondary to multifocal pneumonia -Pulmonology consulted, appreciate their recommendations. Discussed case today, will continue with Vapotherm, weaned to 30 L and 80%. Continue ceftriaxone and azithromycin. Goal sats greater 90%. -Awaiting autoimmune workup - Continue DuoNebs every 6 hours along with Pulmicort every 12 scheduled -Continue methylprednisolone 40 mg IV daily - DuoNebs every 6 hours scheduled - Repeat CBC, CMP, magnesium ordered for the morning History of hypertension: Holding losartan in the setting of sepsis. Mood disorder: Continue sertraline 50 mg daily GERD: Continue pantoprazole 40 mg daily Class II obesity complicates all aspects of his care Full code Lovenox 40 mg daily Regular diet
[2023-07-24] MEDS: VANCOMYCIN HCL 2,000 MG in 0.9 % SODIUM CHLORIDE 250 ML 125 MG IV (16:00)
--- NOTE | 2023-07-24 17:14 | PC.NURSE ---
pt alert and oriented this shift. ls cta. pt currently on vapotherm 30L 60%, sats 90-94. pt has been weaned from 85% fio2 t/o this shift per RT. pt has been encouraged to use incentive spirometer. NSR on telemetry with occasional pvc. pt abdomen soft nontender, bs active. edema noted to bilateral feet. pt did get up and go to the shower this shift. at bedside. call light w/i reach.
[2023-07-24] MEDS: CEFTRIAXONE SODIUM 1 GM in 0.9 % SODIUM CHLORIDE 50 ML IV (19:39)
[2023-07-25] VITALS (21 sets, daily range): BP systolic 92–133; BP diastolic 46–75; PULSE 65–100; RESP 15–28; TEMP 36.5–37.4; O2SAT 81–95; BMI 39.7
[2023-07-25] MEDS: IPRATROPIUM/ALBUTEROL 3 ML NEB IH ×4 (05:57→23:21)
[2023-07-25] MEDS: BUDESONIDE 0.5MG/2ML NEB 0.5 MG IH ×2 (05:58→18:12)
[2023-07-25] MEDS: VANCOMYCIN HCL 2,000 MG in 0.9 % SODIUM CHLORIDE 250 ML 125 MG IV ×2 (06:50→17:39)
[2023-07-25 07:35] LABS: Basophils % 0.3 % (0.1-2.0); Eosinophils # 0.1 K/mm3 (0.0-0.4); Eosinophils % 1.1 % (0.1-12.0); Hematocrit 45.2 % (42.0-52.0); Hemoglobin 14.8 g/dL (14.1-18.0); Lymphocytes # 2.4 K/mm3 (0.7-4.5); Lymphocytes % 24.7 % (10-50); Mean Corpuscular HGB Conc 32.6 g/dL (31.8-35.4); Mean Corpuscular Hemoglobin 32.2 pg (27.0-31.2); Mean Corpuscular Volume 98.7 fl (80-94); Mean Platelet Volume 7.7 fl (7.4-10.4); Monocytes # 0.6 K/mm3 (0.1-1.0); Monocytes % 6.4 % (1.7-9.3); Neutrophils # 6.6 K/mm3 (1.8-7.8); Neutrophils % 67.5 % (37.0-80.0); Platelet Count 340 K/mm3 (142-424); Red Blood Count 4.59 M/mm3 (4.60-6.20); Red Cell Distribution Width 13.1 % (11.5-17.5); White Blood Count 9.8 K/mm3 (4.8-10.8)
[2023-07-25 07:39] LABS: Chloride 103 mmol/L (98-107)
[2023-07-25 07:40] LABS: Potassium 4.1 mmoL/L (3.5-5.1); Sodium 136 mmol/L (136-145)
[2023-07-25 07:42] LABS: Alanine Aminotransferase 98 U/L (12-78); Alkaline Phosphatase 68 U/L (38-126); Aspartate Amino Transferase 61 U/L (17-59); Bilirubin,Total 0.5 mg/dl (0.2-1.3); Blood Urea Nitrogen 18 mg/dl (9-20); Creatinine Clearance Estimated 133 mL/min (50-200); Estimated Glomerular Filt Rate 97 ml/min (>60); GFR (African American) 118 ML/MIN (>60)
[2023-07-25 07:43] LABS: Albumin Level 2.8 g/dl (3.5-5.0); Albumin/Globulin Ratio 0.8 (1.1-1.8); Anion Gap 4.1 mEq/L (5-15); Calcium 8.2 mg/dl (8.4-10.2); Carbon Dioxide 33 mmol/L (22.0-30.0); Globulin 3.4 g/dL (1.3-3.2); Glucose 78 mg/dl (74-100); Total Protein,Serum 6.2 g/dl (6.3-8.2)
[2023-07-25 07:44] LABS: Magnesium 2.3 mg/dl (1.6-2.3)
[2023-07-25] MEDS: IRBESARTAN 75MG TABLET 75 MG PO (07:59)
[2023-07-25] MEDS: METHYLPREDNISOLONE SOD SUCC 40MG VIAL 40 MG IV (07:59)
[2023-07-25] MEDS: ENOXAPARIN 40MG/0.4ML SYRINGE 40 MG SQ (07:59)
[2023-07-25] MEDS: AZITHROMYCIN 250MG TABLET 500 MG PO (07:59)
[2023-07-25] MEDS: PANTOPRAZOLE 40MG TABLET 40 MG PO (07:59)
[2023-07-25] MEDS: hydroCHLOROthiazide 25MG TABLET 25 MG PO (07:59)
[2023-07-25] MEDS: SERTRALINE 50MG TABLET 25 MG PO (07:59)
--- NOTE | 2023-07-25 09:54 | P.PN_ITS ---
Subjective *Date: 07/25/23 *Time: 11:14 Interval history: No acute respiratory events overnight. Patient admits improvement in his respiratory symptoms and activity tolerance Pulmonology Exam Inpatient Vital signs and Labs for Last 24 Hours: Temp Pulse Resp BP Pulse Ox O2 Del Method O2 Flow Rate 97.7 F 79 24 125/70 81 L Vapotherm 30 07/25/23 08:23 07/25/23 08:00 07/25/23 08:00 07/25/23 08:00 07/25/23 08:00 07/25/23 09:00 07/25/23 09:00 FiO2 80 07/25/23 07:50 Laboratory Results - last 24 hr 07/24/23 09:30: Vancomycin Peak 26.6 07/25/23 06:28: WBC 9.8, RBC 4.59 L, Hgb 14.8, Hct 45.2, MCV 98.7 H, MCH 32.2 H, MCHC 32.6, RDW 13.1, Plt Count 340, MPV 7.7, Neut % (Auto) 67.5, Lymph % (Auto) 24.7, [place] % (Auto) 6.4, Eos % (Auto) 1.1, Baso % (Auto) 0.3, Neut # (Auto) 6.6, Lymph # (Auto) 2.4, [place] # (Auto) 0.6, Eos # (Auto) 0.1, Baso # (Auto) 0.0, Sodium 136, Potassium 4.1, Chloride 103, Carbon Dioxide 33 H, Anion Gap 4.1 L, BUN 18 D, Creatinine 0.80, Estimated Creat Clear 133, Estimated GFR 97, Est GFR ( Amer) 118, Glucose 78, Calcium 8.2 L, Magnesium 2.3, Total Bilirubin 0.5, AST 61 H, ALT 98 H, Alkaline Phosphatase 68, Total Protein 6.2 L, Albumin 2.8 L, Globulin 3.4 H, Albumin/Globulin Ratio 0.8 L I & O for Labs for Last 24 Hours: Intake & Output 07/22/23 07/23/23 07/24/23 07/25/23 23:59 23:59 23:59 23:59 Intake Total 880 / 880 1340 / 1340 710 / 710 240 / 240 Output Total 0 / 0 0 / 0 0 / 0 0 / 0 Balance 880 / 880 1340 / 1340 710 / 710 240 / 240 Weight 278 lb 278 lb 0.011 oz 277 lb 12.519 oz 277 lb 12.519 oz Microbiology Reports for the Last 24 Hours: Microbiology 07/23/23 04:22 Sputum - Expectorated Sputum Gram Stain - Final 07/22/23 12:38 Blood Blood Culture - Preliminary 07/22/23 12:10 Blood Blood Culture - Preliminary Constitutional: Present severe distress Head: Present normocephalic and atraumatic ENT: Present normal exam, normal oropharynx and mucous membranes moist Neck: Present normal inspection and full ROM Respiratory: Present respiratory distress and able to speak in complete sentences; Absent wheezes Cardiac: Present S1/S2, Tachycardia and radial pulses present GI: Present soft and distention; Absent tenderness or guarding Skin: Present intact; Absent cyanosis or jaundice Neuro: Present alert, awake and oriented x 3 Extremities: Present normal inspection; Absent clubbing or cyanosis Psychiatric: Present normal affect and cooperative Assessment and Plan *Assessment and plan (1) Multifocal pneumonia: Status: Acute Category: Medical Code(s): J18.9 - Pneumonia, unspecified organism (2) Severe sepsis: Status: Acute Category: Medical Code(s): A41.9 - Sepsis, unspecified organism; R65.20 - Severe sepsis without septic shock (3) Acute hypoxic respiratory failure: Status: Acute Category: Medical Code(s): J96.01 - Acute respiratory failure with hypoxia Plan Mr. 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 Patient found to be having positive for Rhino virus CT upon admission evidence of pulm emphysema bilateral diffuse patchy groundglass opacities, subpleural predominance with no significant effusions noted. Chest x-ray from 2019 clear with no acute infiltrates. No other recent prior imaging available for comparison. Neutrophilic predominant leukocytosis upon admission. Etiology of this patient current worsening respiratory distress does not appear to be just a combination of his COPD and Rhino virus pneumonia , also concerning for underlying possible interstitial lung disease. Denies any recent hospitalizations. Interval update No acute respiratory events overnight. Improving oxygen requirements. X-ray from this morning reviewed, improving pulmonary infiltrates. Not completely resolved. No worsening airspace disease noted. Low lung volumes. Plan: Continue O2 supplement maintain O2 saturation 90% and above. Currently on high flow nasal cannula wean to 20 L 55%. Continue to wean as tolerated. Continue ceftriaxone azithromycin pending culture results Follow the basic autoimmune workup Continue DuoNebs every 6 hours along with Pulmicort every 12 scheduled Continue methylprednisolone 40 mg IV daily # Thank you for involving pulmonary in this patient care. Will continue to follow.
--- NOTE | 2023-07-25 09:54 | XR_ITS ---
FINAL REPORT CLINICAL HISTORY: PNM COMPARISON: 02/14/2019 FINDINGS: A single portable view of the chest was obtained. The heart size and pulmonary vascularity are within normal limits. The mediastinum is within normal limits. There are new bilateral pulmonary opacities worrisome for bilateral pneumonia. The bony thorax is intact. IMPRESSION: New bilateral pulmonary opacities worrisome for bilateral pneumonia. Reviewed, Interpreted and Dictated by Dayne Randall III, MD Transcribed by Coleen Marte Authenticated and [facility]
--- NOTE | 2023-07-25 12:34 | HMH.SLDYSPHA ---
Speech & Language Evaluation Speech/Language Dysphagia Evaluation Start: 07/25/23 12:16 Freq: ONCE Status: Active Protocol: Document 07/25/23 12:16 TAMERASIMONE (Rec: 07/25/23 12:34 [id number] Dysphagia Assess/Goals/Plan Assessment Date of Evaluation: 07/25/23 Evaluation Type Initial Certification Assessment/Problems Difficulty swallowing per MD order Does Patient Qualify for Service No Qualify/Failure Comment Based on clinical observations made during CSE, pt's mastication and manipulation of the bolus and swallowing appear to be WFL at the bedside. No further skilled speech therapy services are warranted at this time. Recommendations PHYSICIAN CERTIFICATION: The specified therapy services are required, authorized, and reviewed every 30 days. Diet Recommendations Normal Liquid Type Recommendations Normal/Thin SL Swallow Guidelines Alt bite w/sip thru meal, Standard Aspiration Prec.,Eat at slow rate,Reflux precautions Dysphagia Swallow Precautions/Strategies Sitting Upright (90 deg),Small Bites and Sips,Alternate Liquids/Solids Plan Pt/Guardian verbally ack understanding Yes of dx/prognosis/goals G -code Required No Education Instructions provided Discussed CSE results, diet recommendations, aspiration precautions and compensatory strategies with pt and his , as well as care management all of which expressed understanding. Pt/Caregiver able to recall information Able to recall/restate Reinforcement needed No Speech & Language HPI History Present Illness Description of Patient Problem ADMINISTRATIVE UNDERWRITER pulled following information from H&P and ER documentation dated 07/22/23, Mr. Cho is a 63-year-old male who presents to the ER with complaint of shortness of breath. States that a little over a week ago he went to a family where there were several sick family members. Symptoms began shortly thereafter with him having dry nonproductive cough and shortness of breath. This past week he went to see his PCP who started him on doxycycline and Z-Hayden. States he has not had any improvement in symptoms and symptoms have progressed to the point that he cannot breathe at night. made him come in to the ER today when he was 78% on room air. Initiated on nasal cannula oxygen and evaluated in the ER for further management. Chest imaging obtained with CT showing diffuse bilateral multifocal pneumonia. White cell count elevated, frankly hypoxic necessitating at least 6 L nasal cannula oxygen. Medicine consulted for admission due to respiratory failure, sepsis, multifocal pneumonia. Pt/Caregiver Concerns Upon patient and interview, pt reports food gets stuck in his dentures, that he eats at a faster rate than he knows he should, and that he takes large bites. He stated he has had no trouble with meals during his time at [facility], but has difficulty with stripper preliminary, crumbly meats such cortes and sausage. He states he does not enjoy using denture glue and that his dentures are the primary cause of his difficulty with food textures. Rehab Services Assessed Speech therapy Hearing Hearing Ability Use of Hearing Aid Language Primary Language Ghanaian General Information General Current Food Consistancy Regular,Thin Liquids Dentition Upper Only Oxygen Status Vapotherm Patient Orientation Person,Place,Time,Situation Ability to Follow Directions Good Communication Ability No Impairment Dysphagia:Food Presentation Evaluation Food Type Pureed,Mechanical Soft,Regular ,Liquid,Pudding,Other Dysphagia Evaluation Summary Pt was seen sitting upright in his bed with his present at the bedside. He was A&O x4 and presents with a dry, nonproductive cough at baseline. Pt reports he only wears upper dentures for his meals and does not use any glue based produced to keep them in place. He was presented all bolus consistencies 3-4x to assess for fatigue and consistency of presentation. Throughout trials, no overt s/sxs of aspiration were noted. He was given the following: thin liquids (via ice chips, open/ straw sips, and two consecutive open cup/straw sips), puree (applesauce), pudding, mixed consistency ( peaches with juice), mechanical soft (nutrigrain bar), and regular (jennifer cracker.) ADMINISTRATIVE UNDERWRITER provided education on proper denture placement, diet options, compensatory strategies and aspiration precautions with pt and both of which expressed understanding. No further skilled speech therapy services are warranted at this time. Stroke Dysphagia Assessment PHYSICIAN CERTIFICATION: I certify the specified therapy services for Ebony Coreyjorge Cho are required, authorized, and reviewed every 30 days.
--- NOTE | 2023-07-25 15:20 | PC.NURSE ---
[address] Mitchell that pt o2 sats were reading at 89. per Dr Mitchell ok to increase pt to . notified RT.
--- NOTE | 2023-07-25 16:49 | EXP.PN ---
Subjective *Date: 07/25/23 *Time: 16:49 Interval history: seen at bedside, also in room, he is on vapotherm, able top hold full conversations Exam Data for Last 24 hours Vital signs and Labs for Last 24 Hours: Temp Pulse Resp BP Pulse Ox O2 Del Method O2 Flow Rate 99.3 F 79 22 92/46 L 94 L Vapotherm 25 07/25/23 16:09 07/25/23 16:00 07/25/23 16:00 07/25/23 16:00 07/25/23 16:00 07/25/23 16:00 07/25/23 16:00 FiO2 55 07/25/23 16:00 Laboratory Results - last 24 hr 07/25/23 06:28: WBC 9.8, RBC 4.59 L, Hgb 14.8, Hct 45.2, MCV 98.7 H, MCH 32.2 H, MCHC 32.6, RDW 13.1, Plt Count 340, MPV 7.7, Neut % (Auto) 67.5, Lymph % (Auto) 24.7, [place] % (Auto) 6.4, Eos % (Auto) 1.1, Baso % (Auto) 0.3, Neut # (Auto) 6.6, Lymph # (Auto) 2.4, [place] # (Auto) 0.6, Eos # (Auto) 0.1, Baso # (Auto) 0.0, Sodium 136, Potassium 4.1, Chloride 103, Carbon Dioxide 33 H, Anion Gap 4.1 L, BUN 18 D, Creatinine 0.80, Estimated Creat Clear 133, Estimated GFR 97, Est GFR ( Amer) 118, Glucose 78, Calcium 8.2 L, Magnesium 2.3, Total Bilirubin 0.5, AST 61 H, ALT 98 H, Alkaline Phosphatase 68, Total Protein 6.2 L, Albumin 2.8 L, Globulin 3.4 H, Albumin/Globulin Ratio 0.8 L I & O for Last 24 hours: Intake & Output 07/22/23 07/23/23 07/24/23 07/25/23 23:59 23:59 23:59 23:59 Intake Total 880 / 880 1340 / 1340 710 / 710 600 / 600 Output Total 0 / 0 0 / 0 0 / 0 0 / 0 Balance 880 / 880 1340 / 1340 710 / 710 600 / 600 Weight 126.099 kg 126.099 kg 126 kg 126 kg Microbiology Reports for the Last 24 Hours: Microbiology 07/23/23 04:22 Sputum - Expectorated Sputum Gram Stain - Final 07/22/23 12:38 Blood Blood Culture - Preliminary 07/22/23 12:10 Blood Blood Culture - Preliminary Constitutional Constitutional: no acute distress *Routine HEENT Exam Head: Present normocephalic Eye: Present EOMI and PERRL ENT: Present mucous membranes moist *Routine Neck Exam Neck: Present supple; Absent lymphadenopathy *Routine Respiratory Exam Respiratory: Present decreased breath sounds and distant breath sounds *Routine Cardiovascular Exam Cardiovascular: Present RRR *Routine Abdominal Exam Abdominal: Present soft and normoactive bowel sounds; Absent tenderness *Routine Extremities Exam Extremities: Absent cyanosis, clubbing or edema *Routine Skin Exam Skin: Present warm; Absent rash *Routine Neurological Exam Neurological: Present alert and oriented X3 Assessment and Plan *Assessment and plan (1) Acute hypoxic respiratory failure: Status: Acute Category: Medical Code(s): J96.01 - Acute respiratory failure with hypoxia (2) Severe sepsis: Status: Acute Category: Medical Code(s): A41.9 - Sepsis, unspecified organism; R65.20 - Severe sepsis without septic shock (3) Multifocal pneumonia: Status: Acute Category: Medical Code(s): J18.9 - Pneumonia, unspecified organism (4) Acute exacerbation of chronic obstructive pulmonary disease: Status: Acute Category: Medical Code(s): J44.1 - Chronic obstructive pulmonary disease with (acute) exacerbation (5) Hypertension: Status: Acute Category: Medical Code(s): I10 - Essential (primary) hypertension (6) Class II obesity: Status: Acute Category: Medical Code(s): E66.9 - Obesity, unspecified Plan 63-year-old male who presents with a week of worsening shortness of breath. Found to be in hypoxemic respiratory failure. Discussed case with ER, request admission for treatment of multifocal pneumonia, new oxygen requirement, sepsis. Medicine agreed to admit for further management. Severe sepsis, improving Acute hypoxemic respiratory failure secondary to multifocal pneumonia -Pulmonology consulted, appreciate their recommendations. continue with Vapotherm, weaned to 30 L and 80%. Continue ceftriaxone and azithromycin. Goal sats greater 90%. -Awaiting autoimmune workup - Continue DuoNebs every 6 hours along with Pulmicort every 12 scheduled -Continue methylprednisolone 40 mg IV daily - DuoNebs every 6 hours scheduled History of hypertension: Holding losartan in the setting of sepsis. Mood disorder: Continue sertraline 50 mg daily GERD: Continue pantoprazole 40 mg daily Class II obesity complicates all aspects of his care Full code Lovenox 40 mg daily Regular diet continue vapotherm support, wean as tolerated per pulmonary
[2023-07-25 18:02] LABS: Vancomycin,Trough 11.5 ug/mL (5.0-10.0)
[2023-07-25] MEDS: CEFTRIAXONE SODIUM 1 GM in 0.9 % SODIUM CHLORIDE 50 ML IV (20:01)
[2023-07-26] VITALS (17 sets, daily range): BP systolic 105–132; BP diastolic 51–69; PULSE 68–100; RESP 13–31; TEMP 36.4–37.1; O2SAT 88–94; BMI 40.6
[2023-07-26] MEDS: VANCOMYCIN HCL 2,000 MG in 0.9 % SODIUM CHLORIDE 250 ML 125 MG IV ×2 (04:19→16:29)
[2023-07-26] MEDS: BUDESONIDE 0.5MG/2ML NEB 0.5 MG IH (05:59)
[2023-07-26] MEDS: IPRATROPIUM/ALBUTEROL 3 ML NEB IH ×2 (05:59→11:16)
[2023-07-26 06:15] LABS: Chloride 102 mmol/L (98-107); Potassium 3.7 mmoL/L (3.5-5.1); Sodium 135 mmol/L (136-145)
[2023-07-26 06:17] LABS: Alanine Aminotransferase 100 U/L (12-78); Aspartate Amino Transferase 55 U/L (17-59); Bilirubin,Total 0.4 mg/dl (0.2-1.3); Blood Urea Nitrogen 15 mg/dl (9-20); Creatinine Clearance Estimated 136 mL/min (50-200); Estimated Glomerular Filt Rate 114 ml/min (>60); GFR (African American) 137 ML/MIN (>60)
[2023-07-26 06:18] LABS: Albumin Level 2.7 g/dl (3.5-5.0); Albumin/Globulin Ratio 0.8 (1.1-1.8); Alkaline Phosphatase 66 U/L (38-126); Anion Gap 2.7 mEq/L (5-15); Calcium 8.2 mg/dl (8.4-10.2); Carbon Dioxide 34 mmol/L (22.0-30.0); Globulin 3.2 g/dL (1.3-3.2); Glucose 115 mg/dl (74-100); Total Protein,Serum 5.9 g/dl (6.3-8.2)
[2023-07-26 06:22] LABS: C-Reactive Protein 18.1 mg/L (0-4)
--- NOTE | 2023-07-26 07:50 | P.PN_ITS ---
Subjective *Date: 07/26/23 *Time: 07:50 Medical Exam Vital signs and Labs for Last 24 Hours: Vital Signs Temp Pulse Pulse Resp BP Pulse Ox O2 Del Method 07/26/23 06:00 71 113/64 94 L Nasal Cannula, Vapotherm 07/26/23 06:02 70 07/26/23 06:02 72 07/26/23 06:02 92 L Vapotherm 07/26/23 04:00 89 07/26/23 04:00 Vapotherm 07/26/23 03:53 74 07/26/23 00:00 73 07/26/23 02:00 71 105/52 L 92 L Vapotherm 07/26/23 00:00 71 114/58 L 92 L Vapotherm 07/26/23 00:00 100 H 07/25/23 20:00 85 07/25/23 23:22 90 L Vapotherm 07/25/23 22:00 76 122/73 94 L Vapotherm 07/25/23 20:00 93 L Vapotherm 07/25/23 20:00 79 126/50 L 93 L Vapotherm 07/25/23 20:00 80 07/25/23 19:03 84 07/25/23 19:03 94 H 07/25/23 19:03 91 L Vapotherm 07/25/23 18:46 Vapotherm 07/25/23 18:19 92 H 22 113/61 95 Vapotherm 07/25/23 17:50 Vapotherm 07/25/23 16:05 90 07/25/23 12:00 82 20 115/64 89 L Vapotherm 07/25/23 15:45 81 94 L Vapotherm 07/25/23 16:00 79 22 92/46 L 94 L Vapotherm 07/25/23 15:30 Vapotherm 07/25/23 16:09 99.3 F 07/25/23 14:00 85 17 129/75 89 L Vapotherm 07/25/23 12:50 Vapotherm 07/25/23 12:00 90 07/25/23 12:00 98.5 F 07/25/23 12:16 Vapotherm 07/25/23 11:16 67 07/25/23 11:16 76 07/25/23 11:16 92 L Vapotherm 07/25/23 11:00 Vapotherm 07/25/23 10:00 77 20 131/67 93 L Vapotherm 07/25/23 08:00 80 07/25/23 09:00 Vapotherm 07/25/23 08:23 97.7 F 07/25/23 08:00 79 24 125/70 81 L Room Air O2 Flow Rate FiO2 07/26/23 06:00 25 55 07/26/23 06:02 07/26/23 06:02 07/26/23 06:02 25 55 07/26/23 04:00 07/26/23 04:00 07/26/23 03:53 07/26/23 00:00 07/26/23 02:00 25 55 07/26/23 00:00 25 55 07/26/23 00:00 07/25/23 20:00 07/25/23 23:22 25 55 07/25/23 22:00 25 55 07/25/23 20:00 25 55 07/25/23 20:00 25 55 07/25/23 20:00 07/25/23 19:03 07/25/23 19:03 07/25/23 19:03 25 55 07/25/23 18:46 25 07/25/23 18:19 25 55 07/25/23 17:50 25 07/25/23 16:05 07/25/23 12:00 20 55 07/25/23 15:45 25 55 07/25/23 16:00 25 55 07/25/23 15:30 25 07/25/23 16:09 07/25/23 14:00 20 55 07/25/23 12:50 20 07/25/23 12:00 07/25/23 12:00 07/25/23 12:16 07/25/23 11:16 07/25/23 11:16 07/25/23 11:16 20 55 07/25/23 11:00 20 07/25/23 10:00 30 60 07/25/23 08:00 07/25/23 09:00 30 07/25/23 08:23 07/25/23 08:00 Intake and Output 07/25/23 07/25/23 07/26/23 15:59 23:59 07:59 Intake Total 600 / 1440 490 / 1440 350 / 350 Output Total 0 / 2 2 / 2 Balance 600 / 1438 488 / 1438 350 / 350 Intake: Intake, Oral Amount 600 / 840 240 / 840 Intake, Total IV Amount 250 / 600 350 / 350 Ceftriaxone Sodium 1 gm In 0.9 100 / 100 % Sodium Chloride 50 ml @ 100 mls/hr IV Q[facility]H [facility] Rx#:[id number] Vancomycin HCl 2,000 mg In 0.9 250 / 500 250 / 250 % Sodium Chloride 250 ml @ 125 mls/hr IV Q12H [facility] Rx#:[id number] Output: Output, Urine Amount 0 / 2 2 / 2 Other: Number of Unmeasured Voids 1 Number of Bowel Movements 2 Weight 128.866 kg Patient Weight 07/26/23 23:59 Weight 128.866 kg Laboratory Results - last 24 hr 07/25/23 06:28: WBC 9.8, RBC 4.59 L, Hgb 14.8, Hct 45.2, MCV 98.7 H, MCH 32.2 H, MCHC 32.6, RDW 13.1, Plt Count 340, MPV 7.7, Neut % (Auto) 67.5, Lymph % (Auto) 24.7, [place] % (Auto) 6.4, Eos % (Auto) 1.1, Baso % (Auto) 0.3, Neut # (Auto) 6.6, Lymph # (Auto) 2.4, [place] # (Auto) 0.6, Eos # (Auto) 0.1, Baso # (Auto) 0.0, Sodium 136, Potassium 4.1, Chloride 103, Carbon Dioxide 33 H, Anion Gap 4.1 L, BUN 18 D, Creatinine 0.80, Estimated Creat Clear 133, Estimated GFR 97, Est GFR ( Amer) 118, Glucose 78, Calcium 8.2 L, Magnesium 2.3, Total Bilirubin 0.5, AST 61 H, ALT 98 H, Alkaline Phosphatase 68, Total Protein 6.2 L, Albumin 2.8 L, Globulin 3.4 H, Albumin/Globulin Ratio 0.8 L 07/25/23 17:14: Vancomycin Trough 11.5 H 07/26/23 05:45: Sodium 135 L, Potassium 3.7, Chloride 102, Carbon Dioxide 34 H, Anion Gap 2.7 L, BUN 15, Creatinine 0.70, Estimated Creat Clear 136, Estimated GFR 114, Est GFR ( Amer) 137, Glucose 115 H D, Calcium 8.2 L, Total Bilirubin 0.4, AST 55, ALT 100 H, Alkaline Phosphatase 66, C-Reactive Protein 18.1 H D, Total Protein 5.9 L, Albumin 2.7 L, Globulin 3.2, Albumin/Globulin Ratio 0.8 L I & O for Labs for Last 24 Hours: Intake & Output 07/23/23 07/24/23 07/25/23 07/26/23 23:59 23:59 23:59 23:59 Intake Total 1340 / 1340 710 / 710 1090 / 1440 350 / 350 Output Total 0 / 0 0 / 0 2 / 2 Balance 1340 / 1340 710 / 710 1088 / 1438 350 / 350 Weight 126.099 kg 126 kg 126 kg 128.866 kg Microbiology Reports for the Last 24 Hours: Microbiology 07/23/23 04:22 Sputum - Expectorated Sputum Gram Stain - Final 07/23/23 04:22 Sputum - Expectorated Sputum Sputum Culture - Preliminary 07/22/23 18:00 Nose MRSA Culture - Final 07/22/23 12:38 Blood Blood Culture - Preliminary 07/22/23 12:10 Blood Blood Culture - Preliminary The patient's infection will respond to the chosen ABx?: Yes Is the patient receiving the right drug, dose, and route?: Yes Could a more targeted ABx be ordered?: No (BLOOD CX SHOWS NO GROWTH AND SPUTUM CX SHOWS NORMAL HAIDER)
--- NOTE | 2023-07-26 08:02 | P.CONPHA_ITS ---
Pharmacy Consult Date: 07/26/23 Time: 08:03 Referring provider: DR. GALVAN Reason for Consult:: VANCOMYCIN TROUGH LEVEL Allergies Allergy/AdvReac Type Severity Reaction Status Date / Time No Known Allergies Allergy Unverified 07/23/23 07:29 Home Medications Medication Instructions Recorded Confirmed Type hydrochlorothiazide 25 mg tablet 25 mg PO DAILY Fluid 07/23/23 07/23/23 History losartan 50 mg tablet 50 mg PO DAILY High Blood Pressure 07/23/23 07/23/23 History sertraline 25 mg tablet 25 mg PO DAILY Mood 07/23/23 07/23/23 History New Prescriptions to Start Prescriptions: Height: 1.78 m Weight: 128.866 kg Laboratory Results:: Laboratory Results - last 24 hr 07/25/23 17:14: Vancomycin Trough 11.5 H 07/26/23 05:45: Sodium 135 L, Potassium 3.7, Chloride 102, Carbon Dioxide 34 H, Anion Gap 2.7 L, BUN 15, Creatinine 0.70, Estimated Creat Clear 136, Estimated GFR 114, Est GFR ( Amer) 137, Glucose 115 H D, Calcium 8.2 L, Total Bilirubin 0.4, AST 55, ALT 100 H, Alkaline Phosphatase 66, C-Reactive Protein 18.1 H D, Total Protein 5.9 L, Albumin 2.7 L, Globulin 3.2, Albumin/Globulin Ratio 0.8 L Medical History: Medical History (Updated 07/22/23 @ 17:53 by Bandar Galvan MD) Anxiety Hypertension Assessment and Plan Assessment and plan all Dx Assessment and Plan for all problems:: BASED ON PATIENT FACTORS AND VANCOMYCIN TROUGH LEVEL OF 11.5, RECOMMEND CONTINU ING CURRENT DOSE OF VANCOMYCIN AT 2,000MG IV EVERY 12 HOURS. PHARMACY WILL CONTINUE TO MONITOR AND ADJUST DOSE APPROPRIATE. -THERON VIGIL, DIMITRID
[2023-07-26] MEDS: AZITHROMYCIN 250MG TABLET 500 MG PO (09:15)
[2023-07-26] MEDS: SERTRALINE 50MG TABLET 25 MG PO (09:15)
[2023-07-26] MEDS: PANTOPRAZOLE 40MG TABLET 40 MG PO (09:15)
[2023-07-26] MEDS: METHYLPREDNISOLONE SOD SUCC 40MG VIAL 40 MG IV (09:15)
[2023-07-26] MEDS: IRBESARTAN 75MG TABLET 75 MG PO (09:15)
[2023-07-26] MEDS: hydroCHLOROthiazide 25MG TABLET 25 MG PO (09:15)
[2023-07-26] MEDS: ENOXAPARIN 40MG/0.4ML SYRINGE 40 MG SQ (09:16)
--- NOTE | 2023-07-26 09:59 | P.PN_ITS ---
Subjective *Date: 07/26/23 *Time: 12:11 Interval history: No acute respiratory events overnight. Patient admits continued improvement in his respiratory symptoms. Pulmonology Exam Inpatient Vital signs and Labs for Last 24 Hours: Temp Pulse Resp BP Pulse Ox O2 Del Method O2 Flow Rate 97.6 F 72 13 120/59 L 91 L Vapotherm 25 07/26/23 07:55 07/26/23 08:00 07/26/23 08:00 07/26/23 08:00 07/26/23 08:00 07/26/23 08:00 07/26/23 08:00 FiO2 55 07/26/23 08:00 Laboratory Results - last 24 hr 07/25/23 17:14: Vancomycin Trough 11.5 H 07/26/23 05:45: Sodium 135 L, Potassium 3.7, Chloride 102, Carbon Dioxide 34 H, Anion Gap 2.7 L, BUN 15, Creatinine 0.70, Estimated Creat Clear 136, Estimated GFR 114, Est GFR ( Amer) 137, Glucose 115 H D, Calcium 8.2 L, Total Bilirubin 0.4, AST 55, ALT 100 H, Alkaline Phosphatase 66, C-Reactive Protein 18.1 H D, Total Protein 5.9 L, Albumin 2.7 L, Globulin 3.2, Albumin/Globulin Ratio 0.8 L I & O for Labs for Last 24 Hours: Intake & Output 07/23/23 07/24/23 07/25/23 07/26/23 23:59 23:59 23:59 23:59 Intake Total 1340 / 1340 710 / 710 1090 / 1440 590 / 590 Output Total 0 / 0 0 / 0 2 / 2 Balance 1340 / 1340 710 / 710 1088 / 1438 590 / 590 Weight 278 lb 0.011 oz 277 lb 12.519 oz 277 lb 12.519 oz 284 lb 1.6 oz Microbiology Reports for the Last 24 Hours: Microbiology 07/23/23 04:22 Sputum - Expectorated Sputum Gram Stain - Final 07/23/23 04:22 Sputum - Expectorated Sputum Sputum Culture - Preliminary 07/22/23 18:00 Nose MRSA Culture - Final 07/22/23 12:38 Blood Blood Culture - Preliminary 07/22/23 12:10 Blood Blood Culture - Preliminary Constitutional: Present severe distress Head: Present normocephalic and atraumatic ENT: Present normal exam, normal oropharynx and mucous membranes moist Neck: Present normal inspection and full ROM Respiratory: Present respiratory distress and able to speak in complete sentences; Absent wheezes Cardiac: Present S1/S2, Tachycardia and radial pulses present GI: Present soft and distention; Absent tenderness or guarding Skin: Present intact; Absent cyanosis or jaundice Neuro: Present alert, awake and oriented x 3 Extremities: Present normal inspection; Absent clubbing or cyanosis Psychiatric: Present normal affect and cooperative Assessment and Plan *Assessment and plan (1) Multifocal pneumonia: Status: Acute Category: Medical Code(s): J18.9 - Pneumonia, unspecified organism (2) Severe sepsis: Status: Acute Category: Medical Code(s): A41.9 - Sepsis, unspecified organism; R65.20 - Severe sepsis without septic shock (3) Acute hypoxic respiratory failure: Status: Acute Category: Medical Code(s): J96.01 - Acute respiratory failure with hypoxia Plan Mr. 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 Patient found to be having positive for Rhino virus CT upon admission evidence of pulm emphysema bilateral diffuse patchy groundglass opacities, subpleural predominance with no significant effusions noted. Chest x-ray from 2019 clear with no acute infiltrates. No other recent prior imaging available for comparison. Neutrophilic predominant leukocytosis upon admission. Etiology of this patient current worsening respiratory distress does not appear to be just a combination of his COPD and Rhino virus pneumonia , also concerning for underlying possible interstitial lung disease. Denies any recent hospitalizations. Interval update No acute respiratory events overnight. Improving chest x-ray from yesterday. CRP improving. Leukocytosis improving. Continue to receive ceftriaxone az ithromycin. Plan: Continue O2 supplement maintain O2 saturation 90% and above. Plan to wean to nasal cannula as tolerated. Continue ceftriaxone azithromycin pending culture results Follow the basic autoimmune workup Initiate Trelegy 100 inhaler along with DuoNebs every 6 hours on as-needed basis Prednisone 40 mg daily oral # Thank you for involving pulmonary in this patient care. Will continue to follow.
[2023-07-26 12:15] LABS: Antinuclear Antibodies (ANA) NEGATIVE
[2023-07-26] MEDS: FLUTICASONE/UMECLIDIN/VILANTER 100/62.5/25MCG INHALER 1 PUFF IH (12:43)
--- NOTE | 2023-07-26 14:12 | PC.NURSE ---
Resp Care Note: Patient weaned off of Vapotherm set at 20L/40% to 4L Nasal Cannula satting 92%
--- NOTE | 2023-07-26 17:23 | EXP.PN ---
Subjective *Date: 07/26/23 *Time: 17:23 Interval history: No acute respiratory events overnight. He is on vapotherm, Patient admits continued improvement in his respiratory symptoms. Exam Data for Last 24 hours Vital signs and Labs for Last 24 Hours: Temp Pulse Resp BP Pulse Ox O2 Del Method O2 Flow Rate 98.8 F 89 20 115/54 L 92 L Nasal Cannula 3 07/26/23 11:26 07/26/23 16:00 07/26/23 16:00 07/26/23 16:00 07/26/23 16:00 07/26/23 16:15 07/26/23 16:15 FiO2 55 07/26/23 10:00 Laboratory Results - last 24 hr 07/23/23 17:16: EILEEN Screen Negative 07/25/23 17:14: Vancomycin Trough 11.5 H 07/26/23 05:45: Sodium 135 L, Potassium 3.7, Chloride 102, Carbon Dioxide 34 H, Anion Gap 2.7 L, BUN 15, Creatinine 0.70, Estimated Creat Clear 136, Estimated GFR 114, Est GFR ( Amer) 137, Glucose 115 H D, Calcium 8.2 L, Total Bilirubin 0.4, AST 55, ALT 100 H, Alkaline Phosphatase 66, C-Reactive Protein 18.1 H D, Total Protein 5.9 L, Albumin 2.7 L, Globulin 3.2, Albumin/Globulin Ratio 0.8 L I & O for Last 24 hours: Intake & Output 07/23/23 07/24/23 07/25/23 07/26/23 23:59 23:59 23:59 23:59 Intake Total 1340 / 1340 710 / 710 1090 / 1440 1420 / 1420 Output Total 0 / 0 0 / 0 2 / 2 0 / 0 Balance 1340 / 1340 710 / 710 1088 / 1438 1420 / 1420 Weight 126.099 kg 126 kg 126 kg 128.866 kg Microbiology Reports for the Last 24 Hours: Microbiology 07/23/23 04:22 Sputum - Expectorated Sputum Gram Stain - Final 07/23/23 04:22 Sputum - Expectorated Sputum Sputum Culture - Preliminary 07/22/23 18:00 Nose MRSA Culture - Final 07/22/23 12:38 Blood Blood Culture - Preliminary 07/22/23 12:10 Blood Blood Culture - Preliminary Constitutional Constitutional: no acute distress *Routine HEENT Exam Head: Present normocephalic Eye: Present EOMI and PERRL ENT: Present mucous membranes moist *Routine Neck Exam Neck: Present supple; Absent lymphadenopathy *Routine Respiratory Exam Respiratory: Present decreased breath sounds and distant breath sounds *Routine Cardiovascular Exam Cardiovascular: Present RRR *Routine Abdominal Exam Abdominal: Present soft and normoactive bowel sounds; Absent tenderness *Routine Extremities Exam Extremities: Absent cyanosis, clubbing or edema *Routine Skin Exam Skin: Present warm; Absent rash *Routine Neurological Exam Neurological: Present alert and oriented X3 Assessment and Plan *Assessment and plan (1) Acute hypoxic respiratory failure: Status: Acute Category: Medical Code(s): J96.01 - Acute respiratory failure with hypoxia (2) Severe sepsis: Status: Acute Category: Medical Code(s): A41.9 - Sepsis, unspecified organism; R65.20 - Severe sepsis without septic shock (3) Multifocal pneumonia: Status: Acute Category: Medical Code(s): J18.9 - Pneumonia, unspecified organism (4) Acute exacerbation of chronic obstructive pulmonary disease: Status: Acute Category: Medical Code(s): J44.1 - Chronic obstructive pulmonary disease with (acute) exacerbation (5) Hypertension: Status: Acute Category: Medical Code(s): I10 - Essential (primary) hypertension (6) Class II obesity: Status: Acute Category: Medical Code(s): E66.9 - Obesity, unspecified Plan 63-year-old male who presents with a week of worsening shortness of breath. Found to be in hypoxemic respiratory failure. Discussed case with ER, request admission for treatment of multifocal pneumonia, new oxygen requirement, sepsis. Medicine agreed to admit for further management. Severe sepsis, improving Acute hypoxemic respiratory failure secondary to multifocal pneumonia -Pulmonology consulted, appreciate their recommendations. continue with Vapotherm, weaned to 30 L and 80%. Continue ceftriaxone and azithromycin. Goal sats greater 90%. -Awaiting autoimmune workup - Continue DuoNebs every 6 hours along with Pulmicort every 12 scheduled -Continue methylprednisolone 40 mg IV daily - DuoNebs every 6 hours scheduled History of hypertension: Holding losartan in the setting of sepsis. Mood disorder: Continue sertraline 50 mg daily GERD: Continue pantoprazole 40 mg daily Class II obesity complicates all aspects of his care Full code Lovenox 40 mg daily Regular diet continue vapotherm support, Discussed with pulmonary, wean to NC tomorrow
--- NOTE | 2023-07-26 18:26 | PC.NURSE ---
A&OX4. PT HAS WENT FROM VAPOTHERM TO 3L NC WHILE UNDER MY CARE TOLERATING 3L NC WELL CURRENTLY. RESPIRATIONS REGULAR AND UNLABORED. LUNG SOUNDS DIMINISHED THROUGHOUT. NONPITTING EDEMA NOTED TO BLE. HAND COMMISSION BROKER EQUAL. +2 PULSES NOTED THROUGHOUT. PT HAS REMAINED IN DROPLET PRECAUTIONS WHILE UNDER MY CARE FOR RHINOVIRUS. SOFT AND NONTENDER ABDOMEN. PT REPORTED 1 BM THIS SHIFT. PT VOIDS PER BATHROOM INDEPENDENTLY. STEADY GAIT NOTED. PT RECEIVED VANC WHILE UNDER MY CARE AND TOLERATED WELL. FAMILY HAS REMAINED AT BEDSIDE THROUGHOUT SHIFT. PT HASN'T REPORTED ANY PAIN THUS FAR. NO QUESTIONS OR CONCERNS VOICED BY PT OR FAMILY. BED IN LOWEST POSITION. CALL LIGHT WITHIN REACH. VSS.
[2023-07-26] MEDS: CEFTRIAXONE SODIUM 1 GM in 0.9 % SODIUM CHLORIDE 50 ML IV (20:11)
[2023-07-27] VITALS (12 sets, daily range): BP systolic 109–136; BP diastolic 61–75; PULSE 60–95; RESP 13–24; TEMP 36.5–37.4; O2SAT 86–96; BMI 40.6
--- NOTE | 2023-07-27 05:12 | PC.NURSE ---
Patient has had a good night tonight. Has not complained of any pain. Patient is on 6L NC. When patient is awake patient stats in the 90s. When the patient is asleep the patient is stat around 85. Patient O2 was increase to 6L and now is stating in the low 90s.
[2023-07-27] MEDS: VANCOMYCIN HCL 2,000 MG in 0.9 % SODIUM CHLORIDE 250 ML 125 MG IV ×2 (06:03→18:50)
[2023-07-27] MEDS: FLUTICASONE/UMECLIDIN/VILANTER 100/62.5/25MCG INHALER 1 PUFF IH (06:27)
--- NOTE | 2023-07-27 07:54 | P.PN_ITS ---
Subjective *Date: 07/27/23 *Time: 08:47 Interval history: No acute respiratory events overnight. Patient admits continued improvement in his symptoms. Pulmonology Exam Inpatient Vital signs and Labs for Last 24 Hours: Temp Pulse Resp BP Pulse Ox O2 Del Method O2 Flow Rate 97.7 F 70 19 121/65 93 L Nasal Cannula 6 07/27/23 04:00 07/27/23 06:00 07/27/23 06:00 07/27/23 06:00 07/27/23 06:28 07/27/23 06:53 07/27/23 06:53 FiO2 55 07/26/23 10:00 Laboratory Results - last 24 hr 07/23/23 17:16: EILEEN Screen Negative I & O for Labs for Last 24 Hours: Intake & Output 07/24/23 07/25/23 07/26/23 07/27/23 23:59 23:59 23:59 23:59 Intake Total 710 / 710 1090 / 1440 2165 / 2315 150 / 150 Output Total 0 / 0 2 / 2 0 / 0 200 / 200 Balance 710 / 710 1088 / 1438 2165 / 2315 -50 / -50 Weight 277 lb 12.519 oz 277 lb 12.519 oz 284 lb 1.6 oz 284 lb 1.402 oz Microbiology Reports for the Last 24 Hours: Microbiology 07/23/23 04:22 Sputum - Expectorated Sputum Gram Stain - Final 07/23/23 04:22 Sputum - Expectorated Sputum Sputum Culture - Final Constitutional: Present moderate distress Head: Present normocephalic and atraumatic ENT: Present normal exam, normal oropharynx and mucous membranes moist Neck: Present normal inspection and full ROM Respiratory: Present respiratory distress and able to speak in complete sentences; Absent wheezes Cardiac: Present S1/S2, Tachycardia and radial pulses present GI: Present soft and distention; Absent tenderness or guarding Skin: Present intact; Absent cyanosis or jaundice Neuro: Present alert, awake and oriented x 3 Extremities: Present normal inspection; Absent clubbing or cyanosis Psychiatric: Present normal affect and cooperative Assessment and Plan *Assessment and plan (1) Multifocal pneumonia: Status: Acute Category: Medical Code(s): J18.9 - Pneumonia, unspecified organism (2) Severe sepsis: Status: Acute Category: Medical Code(s): A41.9 - Sepsis, unspecified organism; R65.20 - Severe sepsis without septic shock (3) Acute hypoxic respiratory failure: Status: Acute Category: Medical Code(s): J96.01 - Acute respiratory failure with hypoxia Plan Mr. 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 Patient found to be having positive for Rhino virus CT upon admission evidence of pulm emphysema bilateral diffuse patchy groundglass opacities, subpleural predominance with no significant effusions noted. Chest x-ray from 2019 clear with no acute infiltrates. No other recent prior imaging available for comparison. Neutrophilic predominant leukocytosis upon admission. Etiology of this patient current worsening respiratory distress does not appear to be just a combination of his COPD and Rhino virus pneumonia , also concerning for underlying possible interstitial lung disease. Denies any recent hospitalizations. Interval update Patient denies any new respiratory complaints. Admits continued improvement in his symptoms. Patient weaned to nasal cannula yesterday during the daytime saturations maintained at 90% on echo and at 1 point weaned to 3 L. Patient noted to be having desaturations overnight with oxygen supplementation increased to 6 L with saturations maintained at 85 to 88%. Will continue to monitor closely for the time and the need for high flow nasal cannula at this point of time. Plan: Incentive spirometry Continue O2 supplement maintain O2 saturation 90% and above. Wean as tolerated Continue antibiotics to complete a total of 7-day course. Currently on ceftriaxone azithromycin. Can be weaned to cefdinir upon discharge. Follow the basic autoimmune workup Continue Trelegy 100 inhaler Trelegy 100 inhaler along with DuoNebs every 6 hours on as-needed basis Prednisone 40 mg daily oral up until patient follows in the pulmonary clinic which will be 5 to 7 days post discharge. # Thank you for involving pulmonary in this patient care. Will continue to follow.
--- NOTE | 2023-07-27 08:08 | EXP.PHA.PN ---
Subjective *Date: 07/27/23 *Time: 08:08 Medical Exam Vital signs and Labs for Last 24 Hours: Vital Signs Temp Pulse Pulse Resp BP Pulse Ox O2 Del Method 07/27/23 06:28 93 L Nasal Cannula 07/27/23 04:00 70 07/27/23 00:00 80 07/27/23 01:00 Nasal Cannula 07/27/23 06:53 Nasal Cannula 07/27/23 06:00 70 19 121/65 94 L Nasal Cannula 07/27/23 05:00 Nasal Cannula 07/27/23 04:00 97.7 F 63 13 118/70 93 L Nasal Cannula 07/27/23 04:00 Nasal Cannula 07/27/23 03:00 Nasal Cannula 07/27/23 02:00 68 17 115/69 93 L Nasal Cannula 07/27/23 00:00 97.8 F 70 17 109/69 L 90 L Nasal Cannula 07/26/23 22:59 Nasal Cannula 07/26/23 22:00 71 18 105/51 L 91 L Nasal Cannula 07/26/23 20:00 80 07/26/23 21:00 Nasal Cannula 07/26/23 20:00 98.5 F 75 20 131/66 88 L Nasal Cannula 07/26/23 20:00 Nasal Cannula 07/26/23 18:31 Nasal Cannula 07/26/23 18:00 81 18 132/67 91 L Nasal Cannula 07/26/23 17:00 Nasal Cannula 07/26/23 16:15 Nasal Cannula 07/26/23 16:00 90 07/26/23 16:00 89 20 115/54 L 92 L Nasal Cannula 07/26/23 15:00 Nasal Cannula 07/26/23 14:00 82 18 116/59 L 91 L Nasal Cannula 07/26/23 13:00 Vapotherm 07/26/23 12:00 68 16 120/66 89 L Vapotherm 07/26/23 12:00 80 07/26/23 11:26 98.8 F 07/26/23 11:17 77 07/26/23 11:17 75 07/26/23 11:00 Vapotherm 07/26/23 09:00 Vapotherm 07/26/23 10:00 77 31 H 122/69 90 L Vapotherm O2 Flow Rate FiO2 07/27/23 06:28 6 07/27/23 04:00 07/27/23 00:00 07/27/23 01:00 5 07/27/23 06:53 6 07/27/23 06:00 6 07/27/23 05:00 6 07/27/23 04:00 6 07/27/23 04:00 6 07/27/23 03:00 6 07/27/23 02:00 6 07/27/23 00:00 5 07/26/23 22:59 5 07/26/23 22:00 5 07/26/23 20:00 07/26/23 21:00 5 07/26/23 20:00 5 07/26/23 20:00 4 07/26/23 18:31 3 07/26/23 18:00 3 07/26/23 17:00 3 07/26/23 16:15 3 07/26/23 16:00 07/26/23 16:00 3 07/26/23 15:00 3 07/26/23 14:00 4 07/26/23 13:00 07/26/23 12:00 25 07/26/23 12:00 07/26/23 11:26 07/26/23 11:17 07/26/23 11:17 07/26/23 11:00 25 07/26/23 09:00 25 07/26/23 10:00 25 55 Intake and Output 07/26/23 07/27/23 07/27/23 23:59 07:59 15:59 Intake Total 745 / 2315 150 / 150 Output Total 0 / 0 200 / 200 Balance 745 / 2315 -50 / -50 Intake: Intake, Oral Amount 470 / 1640 100 / 100 Intake, Total IV Amount 275 / 675 50 / 50 Ceftriaxone Sodium 1 gm In 0.9 50 / 50 % Sodium Chloride 50 ml @ 100 mls/hr IV Q24H ANDRÉS Rx#:[id number] Vancomycin HCl 2,000 mg In 0.9 275 / 525 % Sodium Chloride 250 ml @ 125 mls/hr IV Q12H ANDRÉS Rx#:[id number] Output: Output, Urine Amount 0 / 0 200 / 200 Other: Number of Unmeasured Voids 1 1 Weight 128.86 kg Patient Weight 07/27/23 23:59 Weight 128.86 kg Laboratory Results - last 24 hr 07/23/23 17:16: EILEEN Screen Negative I & O for Labs for Last 24 Hours: Intake & Output 07/24/23 07/25/23 07/26/23 07/27/23 23:59 23:59 23:59 23:59 Intake Total 710 / 710 1090 / 1440 2165 / 2315 150 / 150 Output Total 0 / 0 2 / 2 0 / 0 200 / 200 Balance 710 / 710 1088 / 1438 2165 / 2315 -50 / -50 Weight 126 kg 126 kg 128.866 kg 128.86 kg Microbiology Reports for the Last 24 Hours: Microbiology 07/23/23 04:22 Sputum - Expectorated Sputum Gram Stain - Final 07/23/23 04:22 Sputum - Expectorated Sputum Sputum Culture - Final The patient's infection will respond to the chosen ABx?: Yes (BLOOD CX = NO GROWTH AT 48 HR, SPUTUM = ROUTINE HAIDER, AFEBRILE OVER 24 HR) Is the patient receiving the right drug, dose, and route?: Yes Could a more targeted ABx be ordered?: No
[2023-07-27] MEDS: ENOXAPARIN 40MG/0.4ML SYRINGE 40 MG SQ ×2 (08:36→20:48)
[2023-07-27] MEDS: SERTRALINE 50MG TABLET 25 MG PO (08:36)
[2023-07-27] MEDS: predniSONE 20MG TAB 40 MG PO (08:36)
[2023-07-27] MEDS: PANTOPRAZOLE 40MG TABLET 40 MG PO (08:38)
[2023-07-27] MEDS: hydroCHLOROthiazide 25MG TABLET 25 MG PO (08:38)
[2023-07-27] MEDS: AZITHROMYCIN 250MG TABLET 500 MG PO (08:38)
[2023-07-27] MEDS: IRBESARTAN 75MG TABLET 75 MG PO (08:38)
--- NOTE | 2023-07-27 12:07 | PC.NURSE ---
PT'S O2 WAS 99% ON 6 L. O2 WAS DECREASED TO 2 L. O2 SATURATION 95%. O2 WAS TURNED OFF. O2 SATURATION 93% ON ROOM AIR.
--- NOTE | 2023-07-27 16:15 | EXP.PN ---
Subjective *Date: 07/27/23 *Time: 16:15 Interval history: seen at bedside, denied CP, N/V. His o2 dropped again, discussed with pulmonolgy Exam Data for Last 24 hours Vital signs and Labs for Last 24 Hours: Temp Pulse Resp BP Pulse Ox O2 Del Method O2 Flow Rate 98.7 F 86 18 136/75 95 Room Air 6 07/27/23 08:00 07/27/23 16:00 07/27/23 16:00 07/27/23 16:00 07/27/23 16:00 07/27/23 16:00 07/27/23 10:26 FiO2 55 07/26/23 10:00 I & O for Last 24 hours: Intake & Output 07/24/23 07/25/23 07/26/23 07/27/23 23:59 23:59 23:59 23:59 Intake Total 710 / 710 1090 / 1440 2165 / 2315 450 / 450 Output Total 0 / 0 2 / 2 0 / 0 200 / 200 Balance 710 / 710 1088 / 1438 2165 / 2315 250 / 250 Weight 126 kg 126 kg 128.866 kg 128.86 kg Microbiology Reports for the Last 24 Hours: Microbiology 07/23/23 04:22 Sputum - Expectorated Sputum Gram Stain - Final 07/23/23 04:22 Sputum - Expectorated Sputum Sputum Culture - Final Constitutional Constitutional: no acute distress *Routine HEENT Exam Head: Present normocephalic Eye: Present EOMI and PERRL ENT: Present mucous membranes moist *Routine Neck Exam Neck: Present supple; Absent lymphadenopathy *Routine Respiratory Exam Respiratory: Present decreased breath sounds and distant breath sounds *Routine Cardiovascular Exam Cardiovascular: Present RRR *Routine Abdominal Exam Abdominal: Present soft and normoactive bowel sounds; Absent tenderness *Routine Extremities Exam Extremities: Absent cyanosis, clubbing or edema *Routine Skin Exam Skin: Present warm; Absent rash *Routine Neurological Exam Neurological: Present alert and oriented X3 Assessment and Plan *Assessment and plan (1) Acute hypoxic respiratory failure: Status: Acute Category: Medical Code(s): J96.01 - Acute respiratory failure with hypoxia (2) Severe sepsis: Status: Acute Category: Medical Code(s): A41.9 - Sepsis, unspecified organism; R65.20 - Severe sepsis without septic shock (3) Multifocal pneumonia: Status: Acute Category: Medical Code(s): J18.9 - Pneumonia, unspecified organism (4) Acute exacerbation of chronic obstructive pulmonary disease: Status: Acute Category: Medical Code(s): J44.1 - Chronic obstructive pulmonary disease with (acute) exacerbation (5) Hypertension: Status: Acute Category: Medical Code(s): I10 - Essential (primary) hypertension (6) Class II obesity: Status: Acute Category: Medical Code(s): E66.9 - Obesity, unspecified Plan 63-year-old male who presents with a week of worsening shortness of breath. Found to be in hypoxemic respiratory failure. Discussed case with ER, request admission for treatment of multifocal pneumonia, new oxygen requirement, sepsis. Medicine agreed to admit for further management. Severe sepsis, improving Acute hypoxemic respiratory failure secondary to multifocal pneumonia -Pulmonology consulted, appreciate their recommendations. continue with Vapotherm, weaned to 30 L and 80%. Continue ceftriaxone and azithromycin. Goal sats greater 90%. -Awaiting autoimmune workup - Continue DuoNebs every 6 hours along with Pulmicort every 12 scheduled -Continue methylprednisolone 40 mg IV daily - DuoNebs every 6 hours scheduled History of hypertension: Holding losartan in the setting of sepsis. Mood disorder: Continue sertraline 50 mg daily GERD: Continue pantoprazole 40 mg daily Class II obesity complicates all aspects of his care Full code Lovenox 40 mg daily Regular diet continue to wean down O2
--- NOTE | 2023-07-27 17:00 | PC.NURSE ---
PT IS RESTING IN BED. ALERT AND ORIENTED X4. PT HAS BEEN ON ROOM AIR SINCE THIS MORNING. O2 SATURATION MAINTAINING 93-96%. HAS BEEN USING INCENTIVE SPIROMETER. AMBULATES TO THE BATHROOM. EATING AND DRINKING WELL. VSS. WILL CONTINUE TO MONITOR.
[2023-07-27] MEDS: CEFTRIAXONE SODIUM 1 GM in 0.9 % SODIUM CHLORIDE 50 ML IV (20:48)
[2023-07-28] VITALS: BP 131/77; PULSE 66; PULSE 79; RESP 23; TEMP 36.7; O2SAT 95
[2023-07-28 04:00] VITALS: BP 123/77; PULSE 66; PULSE 74; RESP 20; TEMP 36.9; O2SAT 92; BMI 396334.2
--- NOTE | 2023-07-28 05:06 | PC.NURSE ---
Patient has had a great night. Since moving his O2 prob to his head the patient has remained stable on Room Air stating 93 and above even when patient was asleep. patient has been able to get up the bathroom independently with no issues. patient has had no complaints this shift
[2023-07-28] MEDS: VANCOMYCIN HCL 2,000 MG in 0.9 % SODIUM CHLORIDE 250 ML 125 MG IV (05:26)
[2023-07-28 07:44] VITALS: BP 118/60; PULSE 74; RESP 17; TEMP 36.7; O2SAT 92
[2023-07-28 08:00] VITALS: PULSE 80
[2023-07-28] MEDS: FLUTICASONE/UMECLIDIN/VILANTER 100/62.5/25MCG INHALER 1 PUFF IH (09:03)
[2023-07-28 09:04] VITALS: O2SAT 94
[2023-07-28] MEDS: ENOXAPARIN 40MG/0.4ML SYRINGE 40 MG SQ (09:08)
[2023-07-28 09:09] VITALS: BP 124/70; BP 128/72; PULSE 78; PULSE 86; RESP 16; O2SAT 93; O2SAT 94
[2023-07-28] MEDS: AZITHROMYCIN 250MG TABLET 500 MG PO (09:09)
[2023-07-28] MEDS: IRBESARTAN 75MG TABLET 75 MG PO (09:09)
[2023-07-28] MEDS: hydroCHLOROthiazide 25MG TABLET 25 MG PO (09:09)
[2023-07-28] MEDS: PANTOPRAZOLE 40MG TABLET 40 MG PO (09:09)
[2023-07-28] MEDS: SERTRALINE 50MG TABLET 25 MG PO (09:10)
[2023-07-28] MEDS: predniSONE 20MG TAB 40 MG PO (09:10)
--- NOTE | 2023-07-30 11:30 | CARE MANAGER ---
Contacted patient related to hospital stay. He picked up his medications and has been taking them. He is aware of follow up appointments. Denies questions or concerns and feels better. KAREN Lo
--- NOTE | 2023-07-30 18:29 | P.DS_ITS ---
General Admission date:: 07/22/23 Discharge date: 07/30/23 HPI HPI HPI: Mr. Cho is a 63-year-old male who presents to the ER with complaint of shortness of breath. States that a little over a week ago he went to a family where there were several sick family members. Symptoms began shortly thereafter with him having dry nonproductive cough and shortness of breath. This past week he went to see his PCP who started him on doxycycline and Z-Hayden. States he has not had any improvement in symptoms and symptoms have progressed to the point that he cannot breathe at night. made him come in to the ER today when he was 78% on room air. Initiated on nasal cannula oxygen and evaluated in the ER for further management. Chest imaging obtained with CT showing diffuse bilateral multifocal pneumonia. White cell count elevated, frankly hypoxic necessitating at least 6 L nasal cannula oxygen. Medicine consulted for admission due to respiratory failure, sepsis, multifocal pneumonia. On evaluation, patient states he is feeling somewhat better after being put on oxygen. Is in good spirits. Denies any chest pain, nausea, vomiting. Had an episode of diarrhea today after he had initiated his antibiotics. Denies any fever today but did have a fever several days ago to 102. No confusion, syncope, loss of consciousness. Hospital Course Hospital Course Hospital Course: Patient was seen and evaluated at the bedside on the day of discharge. Patient wishes to be discharged. All patient questions were answered and patient was given time to ask questions. Patient was discharged in stable condition. Patient understands that she can return to ER in case of any sudden changes in health. Total time spent on DC - 38 mins Patient presented with sepsis and Acute hypoxia, which resolved during the hospital stay, patient was discharged in stable condition 63-year-old male who presents with a week of worsening shortness of breath. Found to be in hypoxemic respiratory failure. Discussed case with ER, request admission for treatment of multifocal pneumonia, new oxygen requirement, sepsis. Medicine agreed to admit for further management. Severe sepsis, resolved Acute hypoxemic respiratory failure secondary to multifocal pneumonia - resolved DC on oral Abx and Prednisone History of hypertension: stable at DC Mood disorder: Continue sertraline 50 mg daily GERD: Continue pantoprazole 40 mg daily Exam Data for Last 24 hours Vital signs and Labs for Last 24 Hours: Temp Pulse Resp BP Pulse Ox O2 Del Method O2 Flow Rate 98.1 F 78 16 124/70 94 L Room Air 6 07/28/23 07:44 07/28/23 09:09 07/28/23 09:09 07/28/23 09:09 07/28/23 09:09 07/28/23 09:09 07/27/23 10:26 FiO2 55 07/26/23 10:00 I & O for Last 24 hours: Intake & Output 07/27/23 07/28/23 07/29/23 07/30/23 23:59 23:59 23:59 23:59 Intake Total 990 / 990 490 / 490 Output Total 200 / 200 0 / 0 Balance 790 / 790 490 / 490 Weight 128.86 kg 125.305 kg Constitutional Constitutional: no acute distress *Routine HEENT Exam Head: Present normocephalic Eye: Present EOMI and PERRL ENT: Present mucous membranes moist *Routine Neck Exam Neck: Present supple; Absent lymphadenopathy *Routine Respiratory Exam Respiratory: Present CTA bilaterally *Routine Cardiovascular Exam Cardiovascular: Present RRR *Routine Abdominal Exam Abdominal: Present soft and normoactive bowel sounds; Absent tenderness *Routine Extremities Exam Extremities: Absent cyanosis, clubbing or edema *Routine Skin Exam Skin: Present warm; Absent rash *Routine Neurological Exam Neurological: Present alert and oriented X3 DS: Diagnosis Discharge Diagnosis (1) Acute hypoxic respiratory failure: Status: Acute Code(s): J96.01 - Acute respiratory failure with hypoxia (2) Severe sepsis: Status: Acute Code(s): A41.9 - Sepsis, unspecified organism; R65.20 - Severe sepsis without septic shock (3) Multifocal pneumonia: Status: Acute Code(s): J18.9 - Pneumonia, unspecified organism (4) Acute exacerbation of chronic obstructive pulmonary disease: Status: Acute Code(s): J44.1 - Chronic obstructive pulmonary disease with (acute) exacerbation (5) Hypertension: Status: Acute Code(s): I10 - Essential (primary) hypertension (6) Class II obesity: Status: Acute Code(s): E66.9 - Obesity, unspecified Meds Home Medications and Allergies Home Medications Medication Instructions Recorded Confirmed Type hydrochlorothiazide 25 mg tablet 25 mg PO DAILY Fluid 07/23/23 07/23/23 History losartan 50 mg tablet 50 mg PO DAILY High Blood Pressure 07/23/23 07/23/23 Histo ry sertraline 25 mg tablet 25 mg PO DAILY Mood 07/23/23 07/23/23 History cefdinir 300 mg capsule 300 mg PO BID 7 days #14 caps 07/28/23 Rx prednisone 20 mg tablet 40 mg PO DAILY 5 days #10 tabs 07/28/23 Rx New Prescriptions to Start Prescriptions: cefdinir Justyn,Irfan prednisone Justyn,Irfan Allergies Allergy/AdvReac Type Severity Reaction Status Date / Time No Known Allergies Allergy Unverified 07/23/23 07:29 Discharge Plan Disposition Patient Disposition: Home, Self-Care Condition: Good Discharge Order Discharge Orders: Discharge Order (Routine); Ordered 07/28/23 Ordered By: Dyllan Alejandra Follow up Plan Follow up with: Gato Frederick MD [Primary Care Provider] - 08/01/23 10:15 am Curtis Mitchell MD [Physician] - 08/15/23 1:15 pm Prescriptions/Medication Reconciliation: New prednisone 20 mg Tablet 40 mg PO DAILY 5 Days Qty: 10 0RF cefdinir 300 mg capsule 300 mg PO BID 7 Days Qty: 14 0RF Continued hydrochlorothiazide 25 mg tablet 25 mg PO DAILY losartan 50 mg tablet 50 mg PO DAILY sertraline 25 mg tablet 25 mg PO DAILY Problem Reconciliation Problems Reviewed?: Yes Patient Discharge Instructions ACTIVITY: Ambulate as tolerated DIET: continue same diet Patient Instructions: Pneumonia-Adult, Sepsis, DI for Pneumonia -- Adult, DI for Common Cold, DI for Sepsis -- Adult Providers Primary Care Provider: Gato Frederick Admit Provider: Bandar Bray Attending Provider: Bandar Bray
== END 2023-07-28 09:39 | disposition home or self-care (01) | DRG 871 ==
LOC: ER 14:21 → 2ND 15:07
PROVIDERS: Internal Medicine Pulmonary Disease; Admitting Provider Internal Medicine Adolescent Medicine; Emergency Provider Student in an Organized Health Care Education/Training Program; PCP Family Medicine; Visit Provider Internal Medicine Adolescent Medicine
DX: A41.9 Sepsis, unspecified organism (principal); J18.9 Pneumonia, unspecified organism; J96.01 Acute respiratory failure with hypoxia; J44.1 Chronic obstructive pulmonary disease with (acute) exacerbation; R65.20 Severe sepsis without septic shock; Z87.891 Personal history of nicotine dependence; I10 Essential (primary) hypertension; E66.9 Obesity, unspecified; F39 Unspecified mood [affective] disorder
CPT/HCPCS: 36415; 71045; 71046; 71275; 80053; 80202; 82803; 83036; 83605; 83735; 83880; 84443; 84484; 85007; 85025; 86038; 86140; 87040; 87070; 87081; 87205; 87632; 87635; 87636; 92610; 93005; 94618; 94640; 94760; 94761; 99291; J0456; J0696; J3370; Q9967

== ENCOUNTER 2023-08-28 07:44 | Outpatient (CLI) | payer BC, SELFPAY ==
[2023-08-28] MEDS: ALBUTEROL 0.083% 2.5 MG/3 ML NEB IH (09:56)
== END 2023-08-28 23:59 ==
PROVIDERS: PCP Family Medicine; Visit Provider Internal Medicine Pulmonary Disease
DX: R06.09 Other forms of dyspnea (principal); R55 Syncope and collapse
CPT/HCPCS: 93270; 94060; 94618; 94726; 94729

== ENCOUNTER 2023-09-04 07:14 | Outpatient (CLI) | payer BC, SELFPAY ==
--- NOTE | 2023-09-04 07:14 | NM_ITS ---
APPROVED REPORT Exam: Nuclear Stress Test Indication: SOB, HTN, Family history Patient Location: Outpatient Stress Tech: Juliana Anand [place] Tech:Magaly Cardozo, ARRT, RT (R)(N) Ht: 5 ft 10 in Wt: 264 lbs HR: 84 bpm BP: 121/74 mmHg BSA: 2.35 m2 TID: 1.13 BMI: 37.8 History: SOB, HTN, Family history Procedure: Patient received 0.4 mg of intravenous Lexiscan, resting heart rate 84 bpm, resting blood pressure 121/74 mmHg, with Lexiscan maximum heart rate achieved was 108 bpm which is % of the maximum predicted heart rate and blood pressure was 134/69 mmHg. With Lexiscan, patient denied any complaint of chest pain. Cardiac Stress and Resting SPECT Images: Cardiac Stress and Resting SPECT images were obtained using technetium 99m Myoview 32.5 mCi stress and 10.68 mCi at rest. Resting and stress imaging in supine and prone positions demonstrate no evidence of fixed or reversible perfusion defects. Gated imaging demonstrates normal global and regional LV systolic function. LVEF is calculated at 53%. Conclusion: No evidence of fixed or reversible perfusion defects. Gated imaging demonstrates normal global and regional LV systolic function. LVEF is calculated at 53%. Electronically signed by : Polina Matute MD 09/05/2023 11:17:24
[2023-09-04] MEDS: SODIUM CHLORIDE 0.9% 10ML SYR (RAD ONLY) 10 ML IV ×2 (08:51)
[2023-09-04] MEDS: ISOTOPE MYOVIEW (PER STUDY) 1 DOSE IV (08:51)
[2023-09-04] MEDS: REGADENOSON 0.4MG/5ML SYRINGE 0.400000000000000022 MG IV (08:51)
--- NOTE | 2023-09-04 08:56 | CA_ITS ---
APPROVED REPORT EXAM: Comprehensive 2D, Doppler, and color-flow Echocardiogram [place] Farmer: Kiki Nielsen, RCS, RVS Ht: 5 ft 10 in Wt: 267lbs BSA: 2.36 BP: 109/74 mmHg Indications: Abn EKG, CHF, COPD ex-smoker,Syncope 2D Dimensions Aortic Root 2.98 cm LA Volume 47.40 mL Left Atrium 3.51 cm LA Volume Index 20.309661 mL/m2 (M/F) 16-34 RVID Base (AP4) 3.58 cm (M/F) 2.5-4.1 EF AP4 68.40 % LVOT 1.96 cm (M/F) 1.5-2.5 GL Strain -26.2 % M-Mode Dimensions RVDd 3.01 cm (0.9-2.6) LVDd 5.62 cm (3.5-5.7) Ao Diam 3.19 cm (2.0-3.7) LVDs 3.53 cm (3.5-5.7) IVSd 0.88 cm (0.6-1.1) PWd 0.84 cm (0.6-1.1) EF (Teich) 66.50% EPSs 0.52 cm FS 37.20% EDV (Teich) 154.90 mL ESV (Teich) 51.90 mL LV Diastology E Decel Time 253 (160-240 msec) E/A Ratio 0.72 MED E' 5.8 (>= 7 cm/sec) MED A' 11.90 cm/s E'/MED E' Ratio 10.40 (<= 14) LAT E' 9.5 (>= 10 cm/sec) LAT A' 11.00 cm/s E/LAT E' Ratio 6.35 (<= 14) Aortic Valve LVOT Max 105.0 (70-110 cm/s) MEY Index 1.06 cm2/m2 LVOT VTI 20.07 cm AoV Peak Omega. 148.0 (50-130 cm/s) AO Mean GR. 4.40 (<5 mmHg) AO VTI 24.2 (18-25 cm) MEY (VTI) 2.51 (2.5-4.5 cm2) Mitral Valve MV E Max Omega. 60.0 (40-130 cm/s) MV A Velocity 84.0 (40-130 cm/s) E/A Ratio 0.72 MV Decel. Time 253 (160-240 ms) Tricuspid Valve TR P. Velocity 244.00 cm/s RAP Estimate 10.00 mmHg RVSP 33.80 mmHg Left Ventricle The left ventricle is normal size. The left ventricular systolic function is normal. The left ventricular ejection fraction is within the normal range. There is increased LV wall thickness. There is normal LV segmental wall motion. Transmitral Doppler flow pattern suggests impaired LV relaxation. LVEF is 60%. Right Ventricle The right ventricle is normal size. The right ventricular systolic function is normal. Atria The left atrium size is normal. The right atrium size is normal. The interatrial septum is not well-visualized. Aortic Valve The aortic valve is mildly thickened. There is no aortic valvular stenosis. No aortic regurgitation is present. Mitral Valve The mitral valve leaflets are mildly thickened. No evidence of mitral valve stenosis. Trace mitral regurgitation. Tricuspid Valve The tricuspid valve leaflets are thin and pliable. Trace tricuspid regurgitation. There is insufficient TR jet to estimate RVSP. Pulmonic Valve The pulmonary valve is grossly normal in structure. Trace pulmonic regurgitation. Great Vessels The aortic root is normal in size. The ascending aorta is not well-visualized. The IVC is not well-visualized. Pericardium There is no pericardial effusion. Other Information Study Quality: Technically Difficult Conclusion Technically difficult study due to poor acoustic windows. Normal biventricular systolic function. No significant valvular stenosis or regurgitation. Electronically signed by : Polina Matute MD 09/06/2023 11:48:13
--- NOTE | 2023-09-04 09:42 | CA_ITS ---
APPROVED REPORT Exam: Pharmacologic Technologist: Juliana Michel Ht: 5 ft 10 in Wt: 267 lbs BSA: 2.36 m2 HR: 86 bpm BP: 121/74 mmHg Rhythm: NSR Indications: R94.31, R06.00 Medical History Medications: Losartan,,,,, HCTZ,,,,, Duoneb,,,,, Sertraline,,,,, BREztri,,,,, Stress Test Details Test: LEXISCAN HR Resting HR: 84 bpm Max Heart Rate (APMHR): 156 bpm Max HR Achieved: 108 bpm Target HR (85% APMHR): 133 bpm % of APMHR: 69 Recovery HR: 89 bpm BP Resting BP: 121.0/74.0 mmHg Max BP: 134.0/69.0 mmHg Recovery BP: 119.0/72.0 mmHg ECG Resting ECG: Sinus rhythm Stress ECG: No significant ST changes Arrhythmia: Occasional PVCs Clinical Exercise duration: 04:03 min Highest Stage Achieved: Exercise capacity: 1.0 METs Stress ECG Conclusion Symptoms: Dyspnea, chest tightness, pressure, headache Arrhythmias/Ectopy: PVC ST-T Changes: No significant ST changes Conclusion: EKG portion unremarkable due to Lexiscan infusion. Myoview images reported separately Test Summary REST . . . . . . . Resting REST 04:40 . . 84 . 121/ 74 . . Stage 1 . . . . . . . Myoview Injected Stage 1 01:00 . . 102 . . . . Stage 2 . . . . . . . chest pressure chest tightness Stage 2 01:00 . . 106 . . . . Stage 3 01:00 . . 99 . 131/ 75 . . Stage 4 01:00 . . 96 . 134/ 69 . . Stage 4 01:03 . . 97 . 134/ 69 . Stop exercise at 04:03 RECOVERY 01:00 . . 88 . 134/ 69 . . RECOVERY 02:00 . . 93 . 130/ 74 . . RECOVERY 03:00 . . 93 . 126/ 70 . . RECOVERY 04:00 . . 91 . 119/ 72 . . RECOVERY 04:02 . . 91 . 119/ 72 . . Electronically signed by : Polina Matute MD 09/05/2023 11:16:13
== END 2023-09-04 23:59 ==
LOC: RAD 07:14
PROVIDERS: PCP Family Medicine; Visit Provider Nurse Practitioner
DX: R06.00 Dyspnea, unspecified (principal); R42 Dizziness and giddiness; R55 Syncope and collapse; I25.10 Atherosclerotic heart disease of native coronary artery without angina pectoris; I25.84 Coronary atherosclerosis due to calcified coronary lesion; R94.31 Abnormal electrocardiogram [ECG] [EKG]; I10 Essential (primary) hypertension; R06.83 Snoring; R40.0 Somnolence; Z87.891 Personal history of nicotine dependence
CPT/HCPCS: 78452; 93017; 93018; 93306; A9502; J2785

== ENCOUNTER 2023-09-18 15:37 | Outpatient (CLI) | payer BC, SELFPAY ==
[2023-09-18 16:11] LABS: Basophils # 0.1 K/mm3 (0-0.2); Basophils % 1.1 % (0.1-2.0); Eosinophils # 0.3 K/mm3 (0.0-0.4); Eosinophils % 3.5 % (0.1-12.0); Hematocrit 50.6 % (42.0-52.0); Hemoglobin 15.9 g/dL (14.1-18.0); Lymphocytes % 28.3 % (10-50); Mean Corpuscular HGB Conc 31.5 g/dL (31.8-35.4); Mean Corpuscular Hemoglobin 31.4 pg (27.0-31.2); Mean Corpuscular Volume 99.7 fl (80-94); Mean Platelet Volume 7.3 fl (7.4-10.4); Monocytes # 0.4 K/mm3 (0.1-1.0); Monocytes % 5.5 % (1.7-9.3); Neutrophils # 4.4 K/mm3 (1.8-7.8); Neutrophils % 61.5 % (37.0-80.0); Platelet Count 239 K/mm3 (142-424); Red Blood Count 5.07 M/mm3 (4.60-6.20); Red Cell Distribution Width 13.6 % (11.5-17.5); White Blood Count 7.1 K/mm3 (4.8-10.8)
[2023-09-18 16:48] LABS: Alanine Aminotransferase 28 U/L (12-78); Albumin Level 3.8 g/dl (3.5-5.0); Alkaline Phosphatase 64 U/L (38-126); Anion Gap 9.2 mEq/L (5-15); Aspartate Amino Transferase 27 U/L (17-59); Bilirubin,Direct 0.2 mg/dl (0.0-0.4); Bilirubin,Total 1.2 mg/dl (0.2-1.3); Blood Urea Nitrogen 14 mg/dl (9-20); Calcium 9.5 mg/dl (8.4-10.2); Carbon Dioxide 32 mmol/L (22.0-30.0); Chloride 103 mmol/L (98-107); Chol/HDL Ratio 6.2 (1-3.5); Cholesterol 197 mg/dl (140-200); Estimated Glomerular Filt Rate 85 ml/min (>60); GFR (African American) 103 ML/MIN (>60); Glucose 93 mg/dl (74-100); HDL Cholesterol 32 mg/dl (40-60); Magnesium 2.1 mg/dl (1.6-2.3); Potassium 4.2 mmoL/L (3.5-5.1); Sodium 140 mmol/L (136-145); Total Protein,Serum 7.4 g/dl (6.3-8.2); Triglycerides 199 mg/dl (30-150); VLDL Cholesterol 40 mg/dL (0-40)
[2023-09-18 16:58] LABS: Direct LDL Cholesterol 119.48 mg/dL (100-129)
[2023-09-18 17:03] LABS: Free T4 (Free Thyroxine) 1.02 ng/dl (0.78-2.19)
[2023-09-18 17:18] LABS: Thyroid Stimulating Hormone 2.41 uIU/mL (0.465-4.68)
== END 2023-09-18 23:59 | disposition home or self-care (01) ==
LOC: LAB 15:38
PROVIDERS: PCP Family Medicine; Visit Provider Nurse Practitioner
DX: R40.0 Somnolence (principal); R42 Dizziness and giddiness; R06.00 Dyspnea, unspecified; I10 Essential (primary) hypertension; E78.5 Hyperlipidemia, unspecified; E66.9 Obesity, unspecified; Z68.38 Body mass index [BMI] 38.0-38.9, adult; Z87.891 Personal history of nicotine dependence
CPT/HCPCS: 36415; 80048; 80061; 80076; 83735; 84439; 84443; 85025

== ENCOUNTER 2023-09-27 13:50 | Outpatient (CLI) | payer BC, SELFPAY ==
--- NOTE | 2023-09-27 13:50 | CA_ITS ---
FINAL REPORT TECHNIQUE: Color Doppler, duplex Doppler and martinez scale sonography of the bilateral neck arterial vasculature was performed. Velocities were measured in the carotid arteries. Stenosis evaluation based on the validated velocity criteria. CLINICAL HISTORY: dizziness FINDINGS: The peak systolic velocity of the right common carotid artery is 95 cm/s. The peak systolic velocity of the right internal carotid artery is 83 cm/s and end diastolic velocity 26 cm/s. The ICA/CCA ratio is 0.87. A minimal amount of plaque is present. The right external carotid artery is patent. The right vertebral artery is patent with antegrade flow. The peak systolic velocity of the left common carotid artery is 100 cm/s. The peak systolic velocity of the left internal carotid artery is 119 cm/s and end diastolic velocity 34 cm/s. The ICA/CCA ratio is 1.4. A moderate amount of plaque is present. The left external carotid artery is patent.The left vertebral artery is patent with antegrade flow. IMPRESSION: Less than 50% bilateral carotid stenoses. Bilateral patent vertebral arteries with antegrade flow. If indicated, CTA or MRA could further evaluate. Reviewed, Interpreted and Dictated by Doc Wolff MD Transcribed by Maryana Levi Authenticated and [facility]
== END 2023-09-27 23:59 | disposition home or self-care (01) ==
LOC: RT 13:50
PROVIDERS: PCP Family Medicine; Visit Provider Nurse Practitioner
DX: R42 Dizziness and giddiness (principal)
CPT/HCPCS: 93880

== ENCOUNTER → 2023-11-29 08:28 | Outpatient (CLI) | payer BC, SELFPAY | LOC: SL 08:29 | PROVIDERS: PCP Family Medicine; Visit Provider Nurse Practitioner | DX: G47.30 Sleep apnea, unspecified (principal); G47.36 Sleep related hypoventilation in conditions classified elsewhere; R06.00 Dyspnea, unspecified; R06.83 Snoring; R40.0 Somnolence; I25.10 Atherosclerotic heart disease of native coronary artery without angina pectoris; R55 Syncope and collapse; R42 Dizziness and giddiness | CPT/HCPCS: G0399 ==

== ENCOUNTER 2024-02-21 09:57 | Outpatient (CLI) | payer BC, SELFPAY ==
[2024-02-21 10:40] VITALS: PULSE 85
[2024-02-21] MEDS: ALBUTEROL 0.083% 2.5 MG/3 ML NEB IH (10:40)
== END 2024-02-21 23:59 | disposition home or self-care (01) ==
LOC: RT 09:58
PROVIDERS: PCP Family Medicine; Visit Provider Internal Medicine Pulmonary Disease
DX: R06.09 Other forms of dyspnea (principal)
CPT/HCPCS: 94060; 94618; 94640; 94726; 94729; J7613

== ENCOUNTER 2024-11-07 12:42 | Outpatient (CLI) | payer MEDICARE, BC, SELFPAY ==
--- NOTE | 2024-11-07 12:46 | CT_ITS ---
FINAL REPORT TECHNIQUE: Thin section axial images were obtained from the lung apices to the upper abdomen by computed tomography. Reformatted images were obtained and reviewed. This study was performed with techniques to keep radiation doses al low as reasonably achievable (ALARA). Individualized dose reduction techniques using automated exposure control or adjustment of mA and/or kV according to the patient's size were employed. CLINICAL HISTORY: lung cancer screening former smoker, quit 4 years ago. smoked 2 ppd x 42 years COMPARISON: CTA of the chest dated 07/22/2023 FINDINGS: CHEST CT LOW DOSE 63-year-old male, former smoker who quit 4 years ago, [id number] history CTDI vol (mGy): 2.90 DLP (mGy-cm): 98.9 none There is no axillary adenopathy. There is no mediastinal or hilar mass or adenopathy. The heart is normal in size. There is no pericardial or pleural effusion. Lung window images demonstrate no suspicious infiltrate or nodule. The mixed interstitial and airspace opacities noted on the prior CTA of 2023 have resolved. Limited images of the upper abdomen demonstrate fatty infiltration of the liver. IMPRESSION: Lung-RADS category 1. Recommend 12 month follow up low dose chest CT. Reviewed, Interpreted and Dictated by Doc Wolff MD Transcribed by Sarahy Joaquin Authenticated and [facility]
== END 2024-11-07 23:59 | disposition home or self-care (01) ==
LOC: RAD 12:44
PROVIDERS: PCP Family Medicine; Visit Provider Internal Medicine Pulmonary Disease
DX: Z12.2 Encounter for screening for malignant neoplasm of respiratory organs (principal); Z87.891 Personal history of nicotine dependence
CPT/HCPCS: 71271